=== PATIENT | female | born 1945 | race Hispanic/Latino ===

== ENCOUNTER 2022-05-07 11:00 | Emergency (ER) | payer OTHER ==
--- OUTSIDE RECORDS SUMMARY | 2022-05-07 11:05 | XMS REPORT | Continuity of Care Document ---
:1945 Author Organization [facility] t Address [address] [place] [address] Care Team Providers Name Role Phone Hugo Yanez Savage Primary Care Physician MELCHOR NEGRETE Attending Clinician Unavailable CARLITOS METCALF Attending Clinician Unavailable JOSE G LOPEZ Attending Clinician Unavailable Jose G Lopez MD Attending Clinician JANESSA NAQVI Attending Clinician Unavailable USAMA BERGMAN Attending Clinician Unavailable Usama Bergman MD Attending Clinician Erika Cox MD Attending Clinician HEIDY SEO Attending Clinician Unavailable RAUL GIRALDO Attending Clinician Unavailable KAYLYN SOLO Attending Clinician Unavailable JANESSA NAQVI Admitting Clinician Unavailable ERIKA COX Admitting Clinician Unavailable Erika Cox MD Admitting Clinician KAYLYN SOLO Admitting Clinician Unavailable Payers Payer Name Policy Type Policy Number Effective Date Expiration Date Chelo nam [facility] [id number] 2020 00:00:00 [facility] MEDICARE [id number] 2017 2024 COMPLETE 00:00:00 00:00:00 Problems Condition Condition Condition Status Onset Resolution Last Treating Co mments Source Name Details Category Date Date Treatment Clinician Date Angina at Angina at [facility] HTN HTN Disease Active [facility] (hypertens [facility]-21 Nikki kes ion) ion) [facility] Diabetes Diabetes Disease [facility] Hyperlipid Hyperlipid Disease Active [facility] No known No known Disease [place] active active Health problems problems Encounter Encounter Diagnosis Active 2019-10-30 Memoria for for 02:04:54 l screening screening Herm david mammogram mammogram for breast for breast cancer cancer Active Diagnosis 10/30/2019 [facility] 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 hyperlipid 03:00:22 l emia emeric [place] Active Diagnosis 04/02/2021 [facility] 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 Enzo involving involving [place] coronary coronary artery of artery of [place] heart, heart, angina angina presence presence unspecifie unspecifie d d Active Diagnosis 04/02/2021 [facility] Essential Essential Diagnosis Active 2021-04-02 Memoria hypertensi hypertensi 03:00:22 l on on Active [place] Diagnosis 04/02/2021 [facility] Malignant Malignant Problem Active 2019-12-14 Memoria neoplasm neoplasm 02:00:37 l of of Enzo lower-inne lower-inne r quadrant r quadrant of right of right female female breast, breast, unspecifie unspecifie d estrogen d estrogen receptor receptor status status Active Problem 12/14/2019 [facility] 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 03:00:22 l mellitus mellitus Ricky n with with hyperglyce hyperglyce delvin, delvin, without without long-term long-term current current use of use of insulin insulin Active Diagnosis 04/02/2021 [facility] 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 [place] 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 Enzo Active Problem 04/02/2021 [facility] BMI BMI Problem Active 2021-04-02 Memor ia 33.0-33.9, 33.0-33.9, 03:00:22 l adult adult Enzo Active Problem 04/02/2021 [facility] Falling Falling Problem Active 2021-04-02 Me moria Active 03:00:22 l Problem [place] 04/02/2021 [facility] History of History Problem Active 2021-04-02 Memoria breast of breast 03:00:22 l cancer cancer [place] Active Problem 04/02/2021 [facility] High serum High Problem Active 2021-04-02 M emoria protein serum 03:00:22 l level protein Enzo level Active Problem 04/02/2021 [facility] Keeps Keeps Problem Active 2021-04-02 Memor ia losing losing 03:00:22 l balance balance Enzo Active Problem 04/02/2021 [facility] Other Other Problem Active 2021-04-02 Memor ia chronic chronic 03:00:22 l pain pain Enzo Active Problem 04/02/2021 [facility] Other Other Problem Active 2021-04-02 Memor ia obesity obesity 03:00:22 l due to due to [place] excess excess calories calories Active Problem 04/02/2021 [facility] H/O total H/O total Problem Active 2021-04-02 [facility] mastectomy mastectomy 03:00:22 l of right of right Ricky n breast breast Active Problem 04/02/2021 [facility] History of History Problem Active 2021-04-02 Memoria total of total 03:00:22 l mastectomy mastectomy He rmann of left of left breast breast Active Problem 04/02/2021 [facility] 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 Active Diagnosis 11/21/2020 [facility] Body mass Body mass Problem Active 2021-04-02 Memoria index index 03:00:22 l [BMI] [BMI] Enzo 32.0-32.9, 32.0-32.9, adult adult Active Problem 04/02/2021 [facility] Peripheral Problem Active 2021-04-02 M emoria vascular Peripheral 03:00:22 l disease vascular Enzo disease Active Problem 04/02/2021 [facility] Pain in Pain in Diagnosis Active 2020-12-28 Memoria left leg left leg 02:02:51 l Active [place] Diagnosis 12/28/2020 [facility] Pain in Pain in Diagnosis Active 2020-12-28 Mem[facility] right leg right leg 02:02:51 l Active [place] Diagnosis 12/28/2020 [facility] Diabetic Diabetic Problem Active 2021-04-02 Memoria polyneurop polyneurop 03:00:22 l athy athy [place] associated associated with type with type 2 diabetes 2 diabetes mellitus mellitus Active Problem 04/02/2021 [facility] Screening Screening Diagnosis Active 2020-12-28 Memoria for colon for colon 02:02:51 l cancer cancer [place] Active Diagnosis 12/28/2020 [facility] Screening Screening Diagnosis Active 2020-12-28 Memoria for breast for breast 02:02:51 l cancer cancer [place] Active Diagnosis 12/28/2020 [facility] Asymptomat Asymptoma Diagnosis Active 2020-12-28 Memoria ic tic 02:02:51 l postmenopa postmenopa He rmann usal usal estrogen estrogen deficiency deficiency Active Diagnosis 12/28/2020 [facility] Encntr for Encntr Diagnosis Active 2020-12-28 Memoria general for 02:02:51 l adult general [place] medical adult exam w/o medical abnormal exam w/o findings abnormal findings Active Diagnosis 12/28/2020 [facility] Pain in Pain in Diagnosis Active 2020-11-17 Memoria right knee right knee 02:26:26 l Active Enzo Diagnosis 11/17/2020 [facility] Screening Screening Diagnosis Active 2020-03-29 Memoria for for 03:02:59 l osteoporos osteoporos He eunice is is Active Diagnosis 03/29/2020 [facility] Polyp of Polyp of Diagnosis Active 2020-07-06 Memoria sigmoid sigmoid 03:04:33 l colon, colon, Enzo unspecifie unspecifie d type d type Active Diagnosis 07/06/2020 [facility] Left leg Left leg Diagnosis Active 2021-04-02 Memoria weakness weakness 03:00:22 l Active [place]zo Diagnosis 04/02/2021 [facility] Allergies, Adverse Reactions, Alerts Allergy Allergy Status Severity Reaction(s) Onset Inactive Treating Comm ents Source Name Type Date Date Clinician Amoxicil Amoxicil Active Info Not 2020-05 [place] [facility] grant grant Available 1-12 l 00:00: Valsarta Valsarta Active Info Not 2020-05 [place] n n Available 112 l 00:00: Premarin Premarin Active Info Not 2020-05 [place] Available 1-12 l 00:00: Nystatin Nystatin Active Info Not 2020-05 [place] Available 1-12 l 00:00: NIFEdipi NIFEdipi Active Info Not 2020-05 [place] ne ne Available 1-12 l 00:00: Levaquin Levaquin Active Info Not 2020-05 [place] Available 1-12 l 00:00: Betadine Betadine Active Info Not 2020-05 [place] Available 1-12 l 00:00: Benicar Benicar Active Info Not 2020-05 Memori a Available 1-12 l 00:00: Levoflox Propensi Active [facility] acin ty to 11-17 Health adverse 00:00: reaction 00 s Lisinopr Propensi Active [facility] il ty to 11-17 Health adverse 00:00: reaction 00 s Adhesive Propensi Active [facility] adverse 00:[facility]: Medical reaction 00 Center s Conjugat Propensi Active Hives [facility]28 [facility] Estrogen adverse 00:00: Medical s reaction 00 Center s Tobramyc Propensi Active Hives 2015-[address] [facility] in ty to 3-28 [facility] adverse 00:00: Medical reaction 00 Center s Valsarta Propensi Active Hives 2015-[address] [facility] [facility] n ty to 3-28 [facility] adverse 00:00: Medical reaction 00 Center s Amoxicil Propensi Active Hives 2015-[address] [facility] grant ty to 3-28 [facility] adverse 00:00: Medical reaction 00 Center s Mupiroci Propensi Active Hives 2015- [facility] to 3-[facility] Calcium adverse 00:00: Medical reaction 00 Center s Povidone Propensi Active Hives 2015- [facility] -Iod[facility] ty to 3-28 [facility] (With adverse 00:00: Medical Soap) reaction 00 Center s Levoflox Propensi Active Hives 2015- [facility] to 3-28 [facility] adverse 00:00: Medical reaction 00 Center s Etodolac Propensi Active Hives 2015- [facility] adverse 00:00: Medical reaction 00 Center s Losartan Propensi Active Hives 2015- [facility] 3-[facility] adverse 00:00: Medical reaction 00 Center s Nystatin Propensi Active Hives 2015-[address] [facility] ty to 3-28 [facility] adverse 00:00: Medical reaction 00 Center s Etodolac Allergy Active Hives 2015- [facility] to 328 Health substanc 00:00: e 00 Tobramyc Allergy Active Hives 2014-05 Eye [facility] in to 2-04 redness Health substanc 00:00: and pain e 00 Adhesive Drug Active 2014-05 Skin [facility] Tape Allergy 2-04 blisters Health 00:00: 00 Erythrom Allergy Active 2014-05 The [facility] ycin to 2-04 ophthalmi Health substanc 00:00: c e 00 ointment causes redness and pain Social History Social Habit Start Date Stop Date Quantity Comments Source History [facility] Health Alcohol Std Drinks History [facility] Health Alcohol Binge History [facility] Health Alcohol Comment Exposure to 2022-03-16 2022-03-26 Not sure [facility] SARS-CoV-2 (event) 00:00:00 09:15:00 History [facility] 2020-11-17 2020-11-17 1 [facility] Alcohol Frequency 00:00:00 00:00:00 Alcohol intake 2017-10-07 2017-10-[address] [facility] [facility] 00:00:00 00:00:00 non-drinker of Medical Ce nter alcohol (finding) Tobacco use and 2015-08-15 2015-08-[address] Nikki palacios exposure 00:00:00 00:00:00 [facility] Sex Assigned At [birth year] M[facility] Yang 00:00:00 [facility]:00 [facility] Smoking Status Start Date Stop Date Source Tobacco smoking consumption unknown [facility] Never smoker [facility] Medications Ordered Filled Start Stop Current Ordering Indication Dosage Frequency Signature Comments Components Source Medication Medication Date Date Medication? Clinician (SIG) Name Name bupivacaine 2021-05- No [id number] 1mL [facility] PF 05-26 Health (Marcaine) 15:30: 15:30 0.5 % 00 :00 injection 1 mL lidocaine 2021-05 No [id number] 1mL [facility] (Xylocaine) 05-26 Health 1 % 15:30: 15:30 injection 1 00 :00 mL triamcinolo 2021-05- No [id number] 40mg UT ne 05-26 Health acetonide 15:30: 15:30 (Kenalog-40 00 :00 ) injection 40 mg triamcinolo 2021-05- No [id number] 40mg 40 mg, [facility] ne 05-26 Intra-marily Health acetonide 15:30: 15:30 cular, (Kenalog-40 00 :00 Once PRN ) injection Procedure, 40 mg Starting on Sat03/26/22 at 0930, For 1 dose lidocaine 2021-05 No [id number] 1mL 1 mL, [facility] (Xylocaine) 05-26 Injection, Health 1 % 15:30: 15:30 Once PRN injection 1 00 :00 Procedure, mL Starting on Sat03/26/22 at 0930, For 1 dose bupivacaine 2021-05 No [id number] 1mL 1 mL, UT PF 05-26 Injection, Health (Marcaine) 15:30: 15:30 Once PRN 0.5 % 00 :00 Procedure, injection 1 Starting mL on Sat03/26/22 at 0930, For 1 dose bupivacaine 2021- No [id number] 1mL [facility] PF 11-27 Health (Marcaine) 18:55: 18:55 0.5 % 06 :00 injection 1 mL lidocaine 2021- No [id number] 1mL [facility] (Xylocaine) 11-27 Health 1 % 18:55: 18:55 injection 1 06 :00 mL triamcinolo 2021- No [id number] 40mg UT ne 11-27 Health acetonide 18:55: 18:55 (Kenalog-40 06 :00 ) injection 40 mg triamcinolo 2021- No [id number] 40mg 40 mg, UT ne 11-27 Intra-marily Health acetonide 18:55: 18:55 cular, (Kenalog-40 06 :00 Once PRN ) injection Procedure, 40 mg Starting on Sat11/27/21 at 1355, For 1 dose lidocaine 2021- No [id number] 1mL 1 mL, UT (Xylocaine) 11-27 Injection, H ealth 1 % 18:55: 18:55 Once PRN injection 1 06 :00 Procedure, mL Starting on Sat11/27/21 at 1355, For 1 dose bupivacaine 2021- No [id number] 1mL 1 mL, UT PF 11-27 Injection, Health (Marcaine) 18:55: 18:55 Once PRN 0.5 % 06 :00 Procedure, injection 1 Starting mL on Sat11/27/21 at 1355, For 1 dose triamcinolo 2021- No [id number] 40mg UT ne 08-17 Health acetonide 14:37: 14:37 (Kenalog-40 16 :00 ) injection 40 mg bupivacaine 2021- No [id number] 1mL UT PF 08-1700 Health (Marcaine) 14:37: 14:37 0.5 % 16 :00 injection 1 mL lidocaine 2021- No [id number] 1mL UT (Xylocaine) 08-17 9100 Health 1 % 14:37: 14:37 injection 1 16 :00 mL lidocaine 2021- No [id number] 1mL 1 mL, UT (Xylocaine) 08-17 9100 Injection, H ealth 1 % 14:37: 14:37 Once PRN injection 1 16 :00 Procedure, mL Starting on Claudia 08/17/21 at 0937, For 1 dose bupivacaine No [id number] 1mL 1 mL, UT PF 08-17 9100 Injection, [facility] (Marcaine) 14:37: 14:37 Once PRN 0.5 % 16 :00 Procedure, injection 1 Starting mL on Claudia 08/17/21 at 0937, For 1 dose triamcinolo 2021- No [id number] 40mg 40 mg, UT ne 08-17 9100 Intra-marily Health acetonide 14:37: 14:37 cular, (Kenalog-40 16 :00 Once PRN ) injection Procedure, 40 mg Starting on Claudia 08/17/21 at 0937, For 1 dose Pravastatin 2020-05 Yes Heidy 1 tablet Me moria Sodium 1-14 [place] l 03:00: Enzo 22 Isosorbide 2020-05 Yes Heidy 1 tablet Mem oria Mononitrate 1-14 [place] l 03:00: Acyclovir 2020-05 Yes Heidy TAKE 1 Memori a 1-14 [place] TABLET BY l 03:00: MOUTH [place] 22 TWICE A DAY Aspirin 2020-05 Yes Heidy 1 tablet Memori a 1-14 [place] l 03:00: [place] 22 Atenolol 2020-05 Yes Heidy 1 tablet Memor ia 1-14 [place] l 03:00: Enzo 22 Triamterene 2020-05 Yes Heidy TAKE 1 [place] -HCTZ 1-14 [place] CAPSULE BY l 03:00: MOUTH [place] 22 EVERY MORNING cloNIDine 2020-05 Yes Heidy TAKE 1 Memori a HCl 1-14 [place] TABLET BY l 03:00: MOUTH 3 [place] 22 TIMES A DAY metFORMIN 2020-05 Yes Heidy TAKE 1 Memori a HCl 1-14 [place] TABLET BY l 03:00: MOUTH Enzo 22 TWICE A DAY WITH A MEAL lidocaine 2020-05- No [id number] 1mL UT (Xylocaine) 0-04 02-2000 Health 1 % 18:09: 18:09 injection 1 30 :00 mL bupivacaine 2020-05- No [id number] 1mL UT PF 0-02-20 Health (Marcaine) 18:09: 18:09 0.5 % 30 :00 injection 1 mL triamcinolo 2020-05- No [id number] 40mg UT ne 0-02-20 Health acetonide 18:09: 18:09 (Kenalog-40 30 :00 ) injection 40 mg triamcinolo 2020-05- No [id number] 40mg 40 mg, UT ne 0-02-20 Intra-marily Health acetonide 18:09: 18:09 cular, (Kenalog-40 30 :00 Once PRN ) injection Procedure, 40 mg Starting on Sat02/20/21 at 1309, For 1 dose bupivacaine 2020-05- No [id number] 1mL 1 mL, UT PF 0-02-2000 Injection, Health (Marcaine) 18:09: 18:09 Once PRN 0.5 % 30 :00 Procedure, injection 1 Starting mL on Sat02/20/21 at 1309, For 1 dose lidocaine 2020-05- No [id number] 1mL 1 mL, UT (Xylocaine) 0-02-20 Injection, H ealth 1 % 18:09: 18:09 Once PRN injection 1 30 :00 Procedure, mL Starting on Sat02/20/21 at 1309, For 1 dose Metformin Yes Heidy TAKE 1 Memori a HCl 8-11 [place] TABLET BY l 02:02: MOUTH [place] 51 TWICE A DAY WITH A MEAL Clonidine Yes Heidy 1 tablet [place] HCl 8-11 [place] l 02:02: Enzo 51 Gabapentin Yes Heidy 1 capsule Me moria 8-10 [place] l 00:00: Enzo 00 No known No No known UT medications 7-29 medication He alth 13:27: s 00 No known 2020-0 No No known UT medications 7-29 medication He alth 13:27: s 00 Diclofenac 2020-0 Yes [id number] Q.5D Apply U T Sodium 7-15 topically Health (Voltaren) 00:00: 2 (two) 1 % 00 times a external day. gel Diclofenac 2020-0 Yes [id number] Q.5D Apply U T Sodium 7-15 topically Health (Voltaren) 00:00: 2 (two) 1 % 00 times a external day. gel Diclofenac 2020-0 Yes [id number] Q.5D Apply U T Sodium 7-15 topically Health (Voltaren) 00:00: 2 (two) 1 % 00 times a external day. gel Diclofenac 2020-0 Yes [id number] Q.5D Apply U T Sodium 7-15 topically Health (Voltaren) 00:00: 2 (two) 1 % 00 times a external day. gel Diclofenac 2020-0 Yes [id number] Q.5D Apply U T Sodium 7-15 topically Health (Voltaren) 00:00: 2 (two) 1 % 00 times a external day. gel Diclofenac 2020-0 Yes [id number] Q.5D Apply U T Sodium 7-15 topically Health (Voltaren) 00:00: 2 (two) 1 % 00 times a external day. gel Diclofenac 2020-0 Yes [id number] Q.5D Apply U T Sodium 7-15 topically Health (Voltaren) 00:00: 2 (two) 1 % 00 times a external day. gel Diclofenac 2020-0 Yes [id number] Q.5D Apply U T Sodium 7-15 topically Health (Voltaren) 00:00: 2 (two) 1 % 00 times a external day. gel Diclofenac 2020-0 Yes [id number] Q.5D Apply U T Sodium 7-15 topically Health (Voltaren) 00:00: 2 (two) 1 % 00 times a external day. gel Diclofenac 2020-0 Yes [id number] Q.5D Apply U T Sodium 7-15 topically Health (Voltaren) 00:00: 2 (two) 1 % 00 times a external day. gel meloxicam 2020-2021- No [id number] 15mg QD Take 1 UT (Mobic) 15 7-15 07-16 tablet (15 He alth MG tablet 00:00: 04:59 mg total) 00 :00 by mouth 1 (one) time each day. meloxicam 2021- No [id number] 15mg QD Take 1 UT (Mobic) 15 7-15 07-16 tablet (15 He alth MG tablet 00:00: 04:59 mg total) 00 :00 by mouth 1 (one) time each day. meloxicam 2021- No [id number] 15mg QD Take 1 UT (Mobic) 15 7-15 07-16 tablet (15 He alth MG tablet 00:00: 04:59 mg total) 00 :00 by mouth 1 (one) time each day. meloxicam 2021- No [id number] 15mg QD Take 1 UT (Mobic) 15 7-15 07-16 tablet (15 He alth MG tablet 00:00: 04:59 mg total) 00 :00 by mouth 1 (one) time each day. meloxicam No [id number] 15mg QD Take 1 UT (Mobic) 15 7-15 07-16 tablet (15 He alth MG tablet 00:00: 04:59 mg total) 00 :00 by mouth 1 (one) time each day. meloxicam No [id number] 15mg QD Take 1 UT (Mobic) 15 7-15 07-16 tablet (15 He alth MG tablet 00:00: 04:59 mg total) 00 :00 by mouth 1 (one) time each day. meloxicam No [id number] 15mg QD Take 1 UT (Mobic) 15 7-15 07-16 tablet (15 He alth MG tablet 00:00: 04:59 mg total) 00 :00 by mouth 1 (one) time each day. meloxicam No [id number] 15mg QD Take 1 UT (Mobic) 15 7-15 07-16 tablet (15 He alth MG tablet 00:00: 04:59 mg total) 00 :00 by mouth 1 (one) time each day. meloxicam 2021- No [id number] 15mg QD Take 1 UT (Mobic) 15 12-01 tablet (15 He alth MG tablet 00:00: 04:59 mg total) 00 :00 by mouth 1 (one) time each day. traMADol [id number] 50mg Take 1 U T (Ultram) 50 12-01 tablet (50 H ealth MG tablet 00:00: 04:59 mg total) 00 :00 by mouth every 8 (eight) hours if needed for severe pain for up to 5 days. Triamterene Yes Heidy 1 capsule M emoria -HCTZ 11-21 [place] in the l 02:01: morning Atenolol Yes Heidy 1 tablet Memor ia 11-21 [place] l 02:01: [place] 04 triamcinolo 2020- No [id number] 40mg UT ne 11-17 9109 Health acetonide 19:13: 19:13 (Kenalog-40 27 :00 ) injection 40 mg bupivacaine 2020- No [id number] 1mL UT PF 11-17 9109 Health (Marcaine) 19:13: 19:13 0.5 % 27 :00 injection 1 mL lidocaine 2020- No [id number] 1mL UT (Xylocaine) 11-17 9109 Health 1 % 19:13: 19:13 injection 1 27 :00 mL lidocaine 2020- No [id number] 1mL 1 mL, UT (Xylocaine) 11-17 9109 Injection, H ealth 1 % 19:13: 19:13 Once PRN injection 1 27 :00 Procedure, mL Starting on Claudia 11/17/20 at 1413, For 1 dose bupivacaine 2020- No [id number] 1mL 1 mL, UT PF 11-17 9109 Injection, Health (Marcaine) 19:13: 19:13 Once PRN 0.5 % 27 :00 Procedure, injection 1 Starting mL on Claudia 11/17/20 at 1413, For 1 dose triamcinolo 2020- No [id number] 40mg 40 mg, UT ne 11-1709 Intra-marily Health acetonide 19:13: 19:13 cular, (Kenalog-40 27 :00 Once PRN ) injection Procedure, 40 mg Starting on Sat11/17/20 at 1413, For 1 dose aspirin 81 2020-0 Yes 81mg QD Chew 81 mg U T MG chewable 11-17 1 (one) Healt h tablet 19:09: time each 40 day. aspirin 81 2021-0 Yes 81mg QD Chew 81 mg U T MG chewable 11-17 1 (one) Healt h tablet 19:09: time each 40 day. aspirin 81 2021-0 Yes 81mg QD Chew 81 mg U T MG chewable 11-17 1 (one) Healt h tablet 19:09: time each 40 day. aspirin 81 2021-0 Yes 81mg QD Chew 81 mg U T MG chewable 11-17 1 (one) Healt h tablet 14:09: time each 40 day. aspirin 81 2021-0 Yes 81mg QD Chew 81 mg U T MG chewable 11-17 1 (one) Healt h tablet 14:09: time each 40 day. aspirin 81 2021-0 Yes 81mg QD Chew 81 mg U T MG chewable 11-17 1 (one) Healt h tablet 14:09: time each 40 day. aspirin 81 2021-0 Yes 81mg QD Chew 81 mg U T MG chewable - 1 (one) Healt h tablet 14:09: time each 40 day. aspirin 81 2021-0 Yes 81mg QD Chew 81 mg U T MG chewable - 1 (one) Healt h tablet 14:09: time each 40 day. aspirin 81 2021-0 Yes 81mg QD Chew 81 mg U T MG chewable - 1 (one) Healt h tablet 14:09: time each 40 day. aspirin 81 2021-0 Yes 81mg QD Chew 81 mg U T MG chewable - 1 (one) Healt h tablet 14:09: time each 40 day. aspirin 81 2021-0 Yes 81mg QD Chew 81 mg U T MG chewable - 1 (one) Healt h tablet 14:09: time each 40 day. Diclofenac 2021-0 Yes [id number] Q.5D Apply [place] Sodium 7-01 9109 topically Health (Voltaren) 00:00: 2 (two) 1 % 00 times a external day. gel meloxicam 2021- No [id number] 7.5mg QD Take 1 UT (Mobic) 7.5 11-17 9109 tablet Healt h MG tablet 00:00: 04:59 (7.5 mg 00 :00 total) by mouth 1 (one) time each day. meloxicam 2021- No [id number] 7.5mg QD Take 1 UT (Mobic) 7.5 11-17 9109 tablet Healt h MG tablet 00:00: 04:59 (7.5 mg 00 :00 total) by mouth 1 (one) time each day. meloxicam 2021- No [id number] 7.5mg QD Take 1 UT (Mobic) 7.5 11-17 9109 tablet Healt h MG tablet 00:00: 04:59 (7.5 mg 00 :00 total) by mouth 1 (one) time each day. meloxicam 2021- No [id number] 7.5mg QD Take 1 UT (Mobic) 7.5 11-17 9109 tablet Healt h MG tablet 00:00: 04:59 (7.5 mg 00 :00 total) by mouth 1 (one) time each day. meloxicam 2021- No [id number] 7.5mg QD Take 1 UT (Mobic) 7.5 11-17 9109 tablet Healt h MG tablet 00:00: 04:59 (7.5 mg 00 :00 total) by mouth 1 (one) time each day. meloxicam 2021- No [id number] 7.5mg QD Take 1 UT (Mobic) 7.5 11-17 9109 tablet Healt h MG tablet 00:00: 04:59 (7.5 mg 00 :00 total) by mouth 1 (one) time each day. meloxicam 2021- No [id number] 7.5mg QD Take 1 UT (Mobic) 7.5 7-05 26- 9109 tablet Healt h MG tablet 00:00: 04:59 (7.5 mg 00 :00 total) by mouth 1 (one) time each day. meloxicam 2021-0 2- No [id number] 7.5mg QD Take 1 UT (Mobic) 7.5 11-17 9109 tablet Healt h MG tablet 00:00: 04:59 (7.5 mg 00 :00 total) by mouth 1 (one) time each day. meloxicam 2021-0 2022- No [id number] 7.5mg QD Take 1 UT (Mobic) 7.5 11-17 9109 tablet Healt h MG tablet 00:00: 04:59 (7.5 mg 00 :00 total) by mouth 1 (one) time each day. Diclofenac 2020-0 2020- No [id number] Q.5D Apply [facility] S[facility] 11-17 [facility] 00:00 2 (two) 1 % 00 :00 times a external day. gel isosorbide 2021-0 Yes 20mg Take 20 mg U T mononitrate 6-02 by mouth 2 He alth 20 MG 00:00: (two) tablet 00 times a day with meals. isosorbide 2021-0 Yes 20mg Take 20 mg U T mononitrate 6-02 by mouth 2 He alth 20 MG 00:00: (two) tablet 00 times a day with meals. isosorbide 2021-0 Yes 20mg Take 20 mg U T mononitrate 6-02 by mouth 2 He alth 20 MG 00:00: (two) tablet 00 times a day with meals. isosorbide 2021-0 Yes 20mg Take 20 mg U T mononitrate 6-02 by mouth 2 He alth 20 MG 00:00: (two) tablet 00 times a day with meals. isosorbide 2021-0 Yes 20mg Take 20 mg U T mononitrate 6-02 by mouth 2 He alth 20 MG 00:00: (two) tablet 00 times a day with meals. isosorbide 2021-0 Yes 20mg Take 20 mg U T mononitrate 6-02 by mouth 2 He alth 20 MG 00:00: (two) tablet 00 times a day with meals. isosorbide 2021-0 Yes 20mg Take 20 mg U T mononitrate 6-02 by mouth 2 He alth 20 MG 00:00: (two) tablet 00 times a day with meals. isosorbide 2021-0 Yes 20mg Take 20 mg U T mononitrate 6-02 by mouth 2 He alth 20 MG 00:00: (two) tablet 00 times a day with meals. isosorbide 2021-0 Yes 20mg Take 20 mg U T mononitrate 6-02 by mouth 2 He alth 20 MG 00:00: (two) tablet 00 times a day with meals. isosorbide 2021-0 Yes 20mg Take 20 mg U T mononitrate 6-02 by mouth 2 He alth 20 MG 00:00: (two) tablet 00 times a day with meals. isosorbide 2021-0 Yes 20mg Take 20 mg U T mononitrate 6-02 by mouth 2 He alth 20 MG 00:00: (two) tablet 00 times a day with meals. metFORMIN 2020-0 Yes TAKE 1 UT (Glucophage 4-21 TABLET BY [facility] ) 500 MG 00:00: MOUTH tablet 00 TWICE A DAY WITH A MEAL pravastatin 1-0 Yes 10mg QD Take 10 mg UT (Pravachol) 4-21 by mouth 1 He alth 10 MG 00:00: (one) time tablet 00 each day. metFORMIN 2020-0 Yes TAKE 1 UT (Glucophage 4-21 TABLET BY [facility] ) 500 MG 00:00: MOUTH tablet 00 TWICE A DAY WITH A MEAL pravastatin 2020-0 Yes 10mg QD Take 10 mg UT (Pravachol) 4-21 by mouth 1 He alth 10 MG 00:00: (one) time tablet 00 each day. metFORMIN 2020-0 Yes TAKE 1 UT (Glucophage 4-21 TABLET BY [facility] ) 500 MG 00:00: MOUTH tablet 00 TWICE A DAY WITH A MEAL pravastatin 2020-0 Yes 10mg QD Take 10 mg UT (Pravachol) 4-21 by mouth 1 He alth 10 MG 00:00: (one) time tablet 00 each day. metFORMIN 2020-0 Yes TAKE 1 UT (Glucophage 4-21 TABLET BY [facility] ) 500 MG 00:00: MOUTH tablet 00 TWICE A DAY WITH A MEAL pravastatin 2021-0 Yes 10mg QD Take 10 mg UT (Pravachol) 4-21 by mouth 1 He alth 10 MG 00:00: (one) time tablet 00 each day. metFORMIN 2020-0 Yes TAKE 1 UT (Glucophage 4-21 TABLET BY [facility] ) 500 MG 00:00: MOUTH tablet 00 TWICE A DAY WITH A MEAL pravastatin 2021-0 Yes 10mg QD Take 10 mg UT (Pravachol) 4-21 by mouth 1 He alth 10 MG 00:00: (one) time tablet 00 each day. metFORMIN 2020-0 Yes TAKE 1 UT (Glucophage 4-21 TABLET BY [facility] ) 500 MG 00:00: MOUTH tablet 00 TWICE A DAY WITH A MEAL pravastatin 2020-0 Yes 10mg QD Take 10 mg UT (Pravachol) 4-21 by mouth 1 He alth 10 MG 00:00: (one) time tablet 00 each day. metFORMIN 2020-0 Yes TAKE 1 UT (Glucophage 4-21 TABLET BY [facility] ) 500 MG 00:00: MOUTH tablet 00 TWICE A DAY WITH A MEAL pravastatin 2020-0 Yes 10mg QD Take 10 mg UT (Pravachol) 4-21 by mouth 1 He alth 10 MG 00:00: (one) time tablet 00 each day. metFORMIN 2020-0 Yes TAKE 1 UT (Glucophage 4-21 TABLET BY [facility] ) 500 MG 00:00: MOUTH tablet 00 TWICE A DAY WITH A MEAL pravastatin 2020-0 Yes 10mg QD Take 10 mg UT (Pravachol) 4-21 by mouth 1 He alth 10 MG 00:00: (one) time tablet 00 each day. metFORMIN 2020-0 Yes TAKE 1 UT (Glucophage 4-21 TABLET BY [facility] ) 500 MG 00:00: MOUTH tablet 00 TWICE A DAY WITH A MEAL pravastatin 2020-0 Yes 10mg QD Take 10 mg UT (Pravachol) 4-21 by mouth 1 He alth 10 MG 00:00: (one) time tablet 00 each day. metFORMIN 2020-0 Yes TAKE 1 UT (Glucophage 4-21 TABLET BY [facility] ) 500 MG 00:00: MOUTH tablet 00 TWICE A DAY WITH A MEAL pravastatin 2021-0 Yes 10mg QD Take 10 mg UT (Pravachol) 4-21 by mouth 1 He alth 10 MG 00:00: (one) time tablet 00 each day. metFORMIN 2020-0 Yes TAKE 1 UT (Glucophage 4-21 TABLET BY [facility] ) 500 MG 00:00: MOUTH tablet 00 TWICE A DAY WITH A MEAL pravastatin 2020-0 Yes 10mg QD Take 10 mg UT (Pravachol) 4-21 by mouth 1 He alth 10 MG 00:00: (one) time tablet 00 each day. cloNIDine 2021-0 Yes .1mg Q.[id number] Take 0.1 UT (Catapres) 4-02 [id number] mg by He alth 0.1 MG 00:00: 3D mouth 3 tablet 00 (three) times a day. cloNIDine 2021-0 Yes .1mg Q.[id number] Take 0.1 UT (Catapres) 4-02 [id number] mg by He alth 0.1 MG 00:00: 3D mouth 3 tablet 00 (three) times a day. cloNIDine 2021-0 Yes .1mg Q.[id number] Take 0.1 UT (Catapres) 4-02 [id number] mg by He alth 0.1 MG 00:00: 3D mouth 3 tablet 00 (three) times a day. cloNIDine 2021-0 Yes .1mg Q.[id number] Take 0.1 UT (Catapres) 4-02 [id number] mg by He alth 0.1 MG 00:00: 3D mouth 3 tablet 00 (three) times a day. cloNIDine 2021-0 Yes .1mg Q.[id number] Take 0.1 UT (Catapres) 4-02 [id number] mg by He alth 0.1 MG 00:00: 3D mouth 3 tablet 00 (three) times a day. cloNIDine 2021-0 Yes .1mg Q.[id number] Take 0.1 UT (Catapres) 4-02 [id number] mg by He alth 0.1 MG 00:00: 3D mouth 3 tablet 00 (three) times a day. cloNIDine 2021-0 Yes .1mg Q.[id number] Take 0.1 UT (Catapres) 4-02 [id number] mg by He alth 0.1 MG 00:00: 3D mouth 3 tablet 00 (three) times a day. cloNIDine 2021-0 Yes .1mg Q.[id number] Take 0.1 UT (Catapres) 4-02 [id number] mg by He alth 0.1 MG 00:00: 3D mouth 3 tablet 00 (three) times a day. cloNIDine 2021-0 Yes .1mg Q.[id number] Take 0.1 UT (Catapres) 4-02 [id number] mg by He alth 0.1 MG 00:00: 3D mouth 3 tablet 00 (three) times a day. cloNIDine 2021-0 Yes .1mg Q.[id number] Take 0.1 UT (Catapres) 4-02 [id number] mg by He alth 0.1 MG 00:00: 3D mouth 3 tablet 00 (three) times a day. cloNIDine 2021-0 Yes .1mg Q.[id number] Take 0.1 UT (Catapres) 4-02 [id number] mg by He alth 0.1 MG 00:00: 3D mouth 3 tablet 00 (three) times a day. acyclovir 2021-0 Yes 400mg Q.5D Take 400 UT (Zovirax) 3-25 mg by Health 400 MG 00:00: mouth 2 tablet 00 (two) times a day. acyclovir 2021-0 Yes 400mg Q.5D Take 400 UT (Zovirax) 3-25 mg by Health 400 MG 00:00: mouth 2 tablet 00 (two) times a day. acyclovir 2021-0 Yes 400mg Q.5D Take 400 UT (Zovirax) 3-25 mg by Health 400 MG 00:00: mouth 2 tablet 00 (two) times a day. acyclovir 2021-0 Yes 400mg Q.5D Take 400 UT (Zovirax) 3-25 mg by Health 400 MG 00:00: mouth 2 tablet 00 (two) times a day. acyclovir 2021-0 Yes 400mg Q.5D Take 400 UT (Zovirax) 3-25 mg by Health 400 MG 00:00: mouth 2 tablet 00 (two) times a day. acyclovir 2021-0 Yes 400mg Q.5D Take 400 UT (Zovirax) 3-25 mg by Health 400 MG 00:00: mouth 2 tablet 00 (two) times a day. acyclovir 2021-0 Yes 400mg Q.5D Take 400 UT (Zovirax) 3-25 mg by Health 400 MG 00:00: mouth 2 tablet 00 (two) times a day. acyclovir 2021-0 Yes 400mg Q.5D Take 400 UT (Zovirax) 3-25 mg by Health 400 MG 00:00: mouth 2 tablet 00 (two) times a day. acyclovir 2021-0 Yes 400mg Q.5D Take 400 UT (Zovirax) 3-25 mg by Health 400 MG 00:00: mouth 2 tablet 00 (two) times a day. acyclovir 2021-0 Yes 400mg Q.5D Take 400 UT (Zovirax) 3-25 mg by Health 400 MG 00:00: mouth 2 tablet 00 (two) times a day. acyclovir 2021-0 Yes 400mg Q.5D Take 400 UT (Zovirax) 3-25 mg by Health 400 MG 00:00: mouth 2 tablet 00 (two) times a day. atenolol 2021-0 Yes 50mg Q.5D Take 50 mg UT (Tenormin) 3-19 by mouth 2 Hea lth 50 MG 00:00: (two) tablet 00 times a day. atenolol 2021-0 Yes 50mg Q.5D Take 50 mg UT (Tenormin) 3-19 by mouth 2 Hea lth 50 MG 00:00: (two) tablet 00 times a day. atenolol 2021-0 Yes 50mg Q.5D Take 50 mg UT (Tenormin) 3-19 by mouth 2 Hea lth 50 MG 00:00: (two) tablet 00 times a day. atenolol 2021-0 Yes 50mg Q.5D Take 50 mg UT (Tenormin) 3-19 by mouth 2 Hea lth 50 MG 00:00: (two) tablet 00 times a day. atenolol 2021-0 Yes 50mg Q.5D Take 50 mg UT (Tenormin) 3-19 by mouth 2 Hea lth 50 MG 00:00: (two) tablet 00 times a day. atenolol 2021-0 Yes 50mg Q.5D Take 50 mg UT (Tenormin) 3-19 by mouth 2 Hea lth 50 MG 00:00: (two) tablet 00 times a day. atenolol 2021-0 Yes 50mg Q.5D Take 50 mg UT (Tenormin) 3-19 by mouth 2 Hea lth 50 MG 00:00: (two) tablet 00 times a day. atenolol 2021-0 Yes 50mg Q.5D Take 50 mg UT (Tenormin) 3-19 by mouth 2 Hea lth 50 MG 00:00: (two) tablet 00 times a day. atenolol 2021-0 Yes 50mg Q.5D Take 50 mg UT (Tenormin) 3-19 by mouth 2 Hea lth 50 MG 00:00: (two) tablet 00 times a day. atenolol 2021-0 Yes 50mg Q.5D Take 50 mg UT (Tenormin) 3-19 by mouth 2 Hea lth 50 MG 00:00: (two) tablet 00 times a day. atenolol 2021-0 Yes 50mg Q.5D Take 50 mg UT (Tenormin) 3-19 by mouth 2 Hea lth 50 MG 00:00: (two) tablet 00 times a day. triamterene 2021-0 Yes 1{capsu Take 1 U T -hydroCHLOR 2-20 le} capsule by He alth Othiazide 00:00: mouth 1 (Dyazide) 00 (one) time 37.5-25 MG each day capsule in the morning. triamterene 2021-0 Yes 1{capsu Take 1 U T -hydroCHLOR 2-20 le} capsule by He alth Othiazide 00:00: mouth 1 (Dyazide) 00 (one) time 37.5-25 MG each day capsule in the morning. triamterene 2021-0 Yes 1{capsu Take 1 U T -hydroCHLOR 2-20 le} capsule by He alth Othiazide 00:00: mouth 1 (Dyazide) 00 (one) time 37.5-25 MG each day capsule in the morning. triamterene 2021-0 Yes 1{capsu Take 1 U T -hydroCHLOR 2-20 le} capsule by He alth Othiazide 00:00: mouth 1 (Dyazide) 00 (one) time 37.5-25 MG each day capsule in the morning. triamterene 2021-0 Yes 1{capsu Take 1 U T -hydroCHLOR 2-20 le} capsule by He alth Othiazide 00:00: mouth 1 (Dyazide) 00 (one) time 37.5-25 MG each day capsule in the morning. triamterene Yes 1{capsu Take 1 U T -hydroCHLOR 2-20 le} capsule by He alth Othiazide 00:00: mouth 1 (Dyazide) 00 (one) time 37.5-25 MG each day capsule in the morning. triamterene Yes 1{capsu Take 1 U T -hydroCHLOR 2-20 le} capsule by He alth Othiazide 00:00: mouth 1 (Dyazide) 00 (one) time 37.5-25 MG each day capsule in the morning. triamterene Yes 1{capsu Take 1 U T -hydroCHLOR 2-20 le} capsule by He alth Othiazide 00:00: mouth 1 (Dyazide) 00 (one) time 37.5-25 MG each day capsule in the morning. triamterene Yes 1{capsu Take 1 U T -hydroCHLOR 2-20 le} capsule by He alth Othiazide 00:00: mouth 1 (Dyazide) 00 (one) time 37.5-25 MG each day capsule in the morning. triamterene Yes 1{capsu Take 1 U T -hydroCHLOR 2-20 le} capsule by He alth Othiazide 00:00: mouth 1 (Dyazide) 00 (one) time 37.5-25 MG each day capsule in the morning. triamterene Yes 1{capsu Take 1 U T -hydroCHLOR 2-20 le} capsule by He alth Othiazide 00:00: mouth 1 (Dyazide) 00 (one) time 37.5-25 MG each day capsule in the morning. Triamterene 0 Yes Rufino 1 capsule M [facility] -HCTZ 2-17 [place] in the l 03:04: morning [place] 33 Clonidine 2020-0 Yes Rufino 1 tablet [place] edgard HCl 2-17 [facility] l 03:04: Enzo 33 Pravastatin 2020-0 Yes Rufino 1 tablet Me moria Sodium 2-17 [facility] l 03:04: [place] 33 Acyclovir 2020-0 Yes Rufino 1 tablet [place] edgard 2-17 [facility] l 03:04: [place] 33 Metformin 2020-0 Yes Rufino 1 tablet [place] edgard HCl 2-17 [place] with a l 03:04: meal [place] 33 nitroglycer 2020-0 Yes TAKE UT in 06-13 [facility] (Nitrostat) 00:00: NEEDED 0.4 MG SL 00 FOR CHEST tablet PAIN nitroglycer 2020-0 Yes TAKE UT in 06-13 [facility] (Nitrostat) 00:00: NEEDED 0.4 MG SL 00 FOR CHEST tablet PAIN nitroglycer 2020-0 Yes TAKE UT in 06-13 [facility] (Nitrostat) 00:00: NEEDED 0.4 MG SL 00 FOR CHEST tablet PAIN nitroglycer 2020-0 Yes TAKE UT in 06-13 [facility] (Nitrostat) 00:00: NEEDED 0.4 MG SL 00 FOR CHEST tablet PAIN nitroglycer 2020-0 Yes TAKE UT in 06-13 [facility] (Nitrostat) 00:00: NEEDED 0.4 MG SL 00 FOR CHEST tablet PAIN nitroglycer 2020-0 Yes TAKE UT in 06-13 [facility] (Nitrostat) 00:00: NEEDED 0.4 MG SL 00 FOR CHEST tablet PAIN nitroglycer 2020-0 Yes TAKE UT in 06-13 [facility] (Nitrostat) 00:00: NEEDED 0.4 MG SL 00 FOR CHEST tablet PAIN nitroglycer 2020-0 Yes TAKE UT in 06-13 [facility] (Nitrostat) 00:00: NEEDED 0.4 MG SL 00 FOR CHEST tablet PAIN nitroglycer 2020-0 Yes TAKE UT in 06-13 [facility] (Nitrostat) 00:00: NEEDED 0.4 MG SL 00 FOR CHEST tablet PAIN nitroglycer 2020-0 Yes TAKE UT in 06-13 [facility] (Nitrostat) 00:00: NEEDED 0.4 MG SL 00 FOR CHEST tablet PAIN nitroglycer 2020-0 Yes TAKE UT in 06-13 [facility] (Nitrostat) 00:00: NEEDED 0.4 MG SL 00 FOR CHEST tablet PAIN Atenolol 2019-1 Yes Rufino 1 tablet [facility] 1-10 [facility] l 03:02: 59 Acyclovir 2019-0 Yes Rufino 1 tablet [place] edgard 8-10 [place] l 02:02: 45 Metformin 2019-0 Yes Rufino 1 tablet [place] edgard HCl 8-10 [place] with a l 02:02: meal 45 triamterene 2017-0 Yes 1{capsu QD Take [address] -hydrochlor 5-15 le} capsule by Nikki kes othiazide 12:09: mouth Medical (DYAZIDE) 09 every Center 37.5-25 mg morning. per capsule isosorbide 2018-0 Yes 20mg Q.[id number] Take [address] [facility] dinitrate 5-15 [id number] by mouth 3 [facility] (ISORDIL) 12:09: 3D (three) Medic al 20 MG 09 times Center tablet daily. nitroglycer 2018-[address] 0[address] in 5-15 [facility] (NITROSTAT) 12:09: the tongue Medical 0.3 MG SL 09 every 5 Center tablet (five) minutes as needed for Chest pain Put 1 pill under tongue every 5min as needed for chest pain.No more than 3 doses in 15min.Call 911 if pain is unrelieved 5min after 1st dose . cloNIDine 2018-0 Yes 1{patch Q7D Place [address] [facility] [address] (CATAPRES-T 5-15 } patch onto [facility] TS) 0.1 12:09: the skin Medica l mg/24 hr 09 once a Center patch week. triamterene 2018-0 Yes 1{capsu QD Take [address] -hydrochlor 5-15 le} capsule by Nikki kes othiazide 12:09: mouth Medical (DYAZIDE) 09 every Center 37.5-25 mg morning. per capsule isosorbide 2018-0 Yes 20mg Q.[id number] Take [address] [facility] dinitrate 5-15 [id number] by mouth 3 [facility] (ISORDIL) 12:09: 3D (three) Medic al 20 MG 09 times Center tablet daily. nitroglycer 2018-[address] in 5-15 [facility] (NITROSTAT) 12:09: the tongue Medical 0.3 MG SL 09 every 5 Center tablet (five) minutes as needed for Chest pain Put 1 pill under tongue every 5min as needed for chest pain.No more than 3 doses in 15min.Call 911 if pain is unrelieved 5min after 1st dose . cloNIDine 2018-0 Yes 1{patch Q7D Place [address] (CATAPRES-T 5-15 } patch onto [facility] TS) 0.1 12:09: the skin Medica l mg/24 hr 09 once a Center patch week. triamterene 2018-0 Yes 1{capsu QD Take [address] -hydrochlor 5-15 le} capsule by [facility] othiazide 12:09: mouth Medical (DYAZIDE) 09 every Center 37.5-25 mg morning. per capsule isosorbide 2018-0 Yes 20mg Q.[id number] Take [address] [facility] dinitrate 5-15 [id number] by mouth 3 [facility] (ISORDIL) 12:09: 3D (three) Medic al 20 MG 09 times Center tablet daily. nitroglycer 2018-[address] in 5-15 [facility] (NITROSTAT) 12:09: the tongue Medical 0.3 MG SL 09 every 5 Center tablet (five) minutes as needed for Chest pain Put 1 pill under tongue every 5min as needed for chest pain.No more than 3 doses in 15min.Call 911 if pain is unrelieved 5min after 1st dose . cloNIDine 2018-0 Yes 1{patch Q7D Place [address] (CATAPRES-T 5-15 } patch onto [facility] TS) 0.1 12:09: the skin Medica l mg/24 hr 09 once a Center patch week. triamterene 2017-0 Yes 1{capsu QD Take [address] -hydrochlor 5-15 le} capsule by [facility] othiazide 12:09: mouth Medical (DYAZIDE) 09 every Center 37.5-25 mg morning. per capsule isosorbide 2018-0 Yes 20mg Q.[id number] Take [address] [facility] [address] dinitrate 5-15 [id number] by mouth 3 [facility] (ISORDIL) 12:09: 3D (three) Medic al 20 MG 09 times Center tablet daily. nitroglycer 2018-[address] 0[address] in 5-15 mg [facility] (NITROSTAT) 12:09: the tongue Medical 0.3 MG SL 09 every 5 Center tablet (five) minutes as needed for Chest pain Put 1 pill under tongue every 5min as needed for chest pain.No more than 3 doses in 15min.Call 911 if pain is unrelieved 5min after 1st dose . cloNIDine 2018-0 Yes 1{patch Q7D Place [address] (CATAPRES-T 5-15 } patch onto [facility] TS) 0.1 12:09: the skin Medica l mg/24 hr 09 once a Center patch week. Immunizations Ordered Immunization Filled Immunization Date Status Commen ts Source Name Name Pneumococcal 2020-03-23 Completed [facility] (Prevnar 13) 00:00:00 [place] Vital Signs Vital Name Observation Time Observation Value Comments Source Weight 2021-03-31 17:30:00 [facility] Height 2021-03-31 17:30:00 [facility] Heart Rate 2021-03-31 17:30:00 [facility] Diastolic (mm Hg) 2021-03-31 17:30:00 Mem [facility] [place] Systolic (mm Hg) 2021-03-31 17:30:00 [place] [facility] [place] Weight 2020-12-27 14:00:00 [facility] [place] Height 2020-12-27 14:00:00 [facility] Heart Rate 2020-12-27 14:00:00 [facility] [place] Diastolic (mm Hg) 2020-12-27 14:00:00 Mem orial [place] Systolic (mm Hg) 2020-12-27 14:00:00 [place] [facility] Weight 2020-09-30 16:00:00 [facility] [place] Height 2020-09-30 16:00:00 [facility] [place] Heart Rate 2020-09-30 16:00:00 [facility] [place] Diastolic (mm Hg) 2020-09-30 16:00:00 Mem orial [place] Systolic (mm Hg) 2020-09-30 16:00:00 [place] [facility] [place] Weight 2020-09-26 13:45:00 [facility] Height 2020-09-26 13:45:00 [facility] Heart Rate 2020-09-26 13:45:00 [facility] Diastolic (mm Hg) 2020-09-26 13:45:00 Mem [facility] [place] Systolic (mm Hg) 2020-09-26 13:45:00 [place] [facility] Weight 2020-06-28 14:30:00 [facility] [place] Height 2020-06-28 14:30:00 [facility] Heart Rate 2020-06-28 14:30:00 [facility] Diastolic (mm Hg) 2020-06-28 14:30:00 Mem [facility] [place] Systolic (mm Hg) 2020-06-28 14:30:00 [place] [facility] Weight 2020-03-23 14:30:00 [facility] [place] Height 2020-03-23 14:30:00 [facility] [place] Heart Rate 2020-03-23 14:30:00 [facility] Diastolic (mm Hg) 2020-03-23 14:30:00 Mem [facility] [place] Systolic (mm Hg) 2020-03-23 14:30:00 [place] [facility] Systolic (mm Hg) 2019-12-22 14:30:00 [place] [facility] [place] Weight 2019-12-22 14:30:00 [facility] Height 2019-12-22 14:30:00 [facility] [place] Temperature Oral (F) 2019-12-22 14:30:00 98.0 F [facility] [place] Heart Rate 2019-12-22 14:30:00 [facility] [place] Diastolic (mm Hg) 2019-12-22 14:30:00 Mem orial [place] Weight 2019-12-08 14:15:00 [facility] [place] Height 2019-12-08 14:15:00 [facility] [place] Temperature Oral (F) 2019-12-08 14:15:00 98.0 F [facility] [place] Heart Rate 2019-12-08 14:15:00 [facility] Diastolic (mm Hg) 2019-12-08 14:15:00 Mem orial [place] Systolic (mm Hg) 2019-12-08 14:15:00 [place] [facility] Procedures Procedure Date / Time Performed Performing Clinician Rojas sami NE ARTHROCENTESIS ASP/INJ 2022-03-26 15:30:00 Melchor Negrete [facility] MAJOR JOINT/BURSA W/OUT US NE ARTHROCENTESIS ASPIR&/INJ 2021-11-27 18:55:06 Melchor Negrete [facility] MAJOR JT/BURSA W/O US NE ARTHROCENTESIS ASPIR&/INJ 2021-08-17 14:37:16 Melchor Negrete [facility] MAJOR JT/BURSA W/O US US EXT LOWER VENOUS DOPPLER 2021-04-27 02:42:00 Mercedez Sawant [facility] BILAT US EXT LOWER VENOUS DOPPLER 2021-04-27 02:42:00 Mercedez Sawant [facility] BILAT SURGICAL PATHOLOGY 2021-04-26 16:41:00 TeaCarlitos cunha [facility] SURGICAL PATHOLOGY 2021-04-26 16:41:00 TeaCarlitos cunha [facility] MRI THORACIC SPINE W WO 2021-04-26 04:25:27 TeaCarlitos-Y u [facility] CONTRAST MRI THORACIC SPINE W WO 2021-04-26 04:25:27 TeaCarlitos-Y u [facility] CONTRAST MRI CERVICAL SPINE W WO 2021-04-26 04:25:03 TeaCarlitos-Y u [facility] CONTRAST MRI CERVICAL SPINE W WO 2021-04-26 04:25:03 TeaCarlitos-Y u [facility] CONTRAST CT CERVICAL SPINE WO 2021-04-25 23:40:27 TeaCarlitos U [facility] CONTRAST CT CHEST/ABDOMEN/PELVIS WO 2021-04-25 23:40:27 Landry Chino K [facility] CONTRAST [id number] CT CERVICAL SPINE WO 2021-04-25 23:40:27 TeaCarlitos [facility] CONTRAST CT CHEST/ABDOMEN/PELVIS WO 2021-04-25 23:40:27 Landry Chino K [facility] CONTRAST [id number] MRI THORACIC SPINE WO 2021-04-25 20:10:25 TeaCarlitos [facility] CONTRAST MRI THORACIC SPINE WO 2021-04-25 20:10:25 Tea, Carlitos Mahan [facility] CONTRAST ECG 12-LEAD 2021-04-24 15:15:22 [facility] ECG 12-LEAD 2021-04-24 15:15:[facility] NE ARTHROCENTESIS ASPIR&/INJ 2021-02-20 18:09:30 Melchor Negrete [facility] MAJOR JT/BURSA W/O US NE ARTHROCENTESIS ASPIR&/INJ 2020-11-17 19:13:27 Melchor Negrete [facility] MAJOR JT/BURSA W/O US KNEE 4+ VIEWS UNILATERAL DX 2020-09-27 20:12:00 System, Provider Not In [facility] KNEE 4+ VIEWS UNILATERAL DX 2020-09-27 20:12:00 System, Provider Not In [facility] Plan of Care Planned Activity Planned Date Details Comments Source Future Scheduled 2022-05-05 COVID-19 [facility]ACCINE (#[facility] 12:44:32 [code = COVID-19 VACCINE (#1)] Future Scheduled 2022-05-05 SHINGLES VACCINES [facility] 12:44:32 of 2) [code = SHINGLES VACCINES (1 of 2)] Future Scheduled 2022-05-05 65+ [facility] [facility] 12:44:32 VACCINE (1 - PCV) [code = 65+ PNEUMOCOCCAL VACCINE (1 - PCV)] Future Scheduled 2022-05-05 [facility]FLUENZA VACCINE [facility] 12:44:32 [code = INFLUENZA VACCINE] Future Scheduled [facility]ACC[facility] [code = INFLUENZA VACCINE] Future Scheduled COVID-19 VACCINE (1) [facility] [code = COVID-19 VACCINE (1)] Future Scheduled SHINGLES VACCINES (#1) [facility] [code = SHINGLES VACCINES (#1)] Future Scheduled 65+ [facility]OCOCCAL [facility] VACCINE (1 of 1 - PPSV23) [code = 65+ PNEUMOCOCCAL VACCINE (1 of 1 - PPSV23)] Encounters Start End Encounter Admission Attending Care Care Encounter Source Date/Time Date/Time Type Type Clinicians Facility Department ID 2022-05-07 Outpatient [id number] [facility] 11:03:04 [id number] [id number] 2021-08-01 Outpatient [facility] [id number] [place] 12:17:47 [facility] 2021-07-26 Outpatient TEA [facility] [id number] [place] 01:04:23 [facility] 2020-11-29 Outpatient [facility] [id number] [place] 13:32:52 [facility] 2020-11-14 Outpatient IONA [facility] [id number] [place] 10:14:35 [facility] 2022-03-26 2022-03-26 Office ABELARDO Negrete [facility] [id number] [place] 09:30:00 09:44:59 Visit Melchor ODONNELL [id number] H ealt MEDICAL [id number] [place] 0 [id number] 2022-01-19 2022-02-17 Outpatient CIRILOBAPROSPER, MHHH [facility] [id number] MHHH 14:59:00 23:59:00 JOSE G 2022-01-17 2022-01-17 Outpatient CIRILOBAPROSPER, MHBL MHBL [id number] MHBL 07:33:00 23:59:00 JOSE G 2021-11-27 2021-11-27 Office ABELARDO Negrete [facility] [id number] [place] 14:15:00 14:17:50 Visit Melchor ODONNELL [id number] [facility] ealt MEDICAL [id number] [address] [id number] 2021-08-28 2021-08-28 Telephone ABELARDO Lopez [id number] [place] 00:00:00 00:00:00 Jose G M[facility] [id number] Health [id number] 2021-07-21 2021-08-19 Outpatient JOHN, MHHH MHHH [id number] MHHH 14:07:00 23:59:00 JOSE G 2021-08-17 2021-08-17 Office ABELARDO Negrete [facility] 1.2.840.114 [id number] [place] 09:45:00 09:45:00 Visit Meclhor ODONNELL [id number] [place] MEDICAL [id number] PLA[place] 4 [id number] 2021-08-09 2021-08-09 Outpatient AMSBAUGH, MHSE MHSE [id number] MH 16:40:00 23:59:00 [facility] 2021-07-19 2021-07-19 Outpatient AMSBAUGH, MHSE MHSE [id number] MH 15:21:00 23:59:00 [facility] 2021-06-26 2021-06-26 Telephone Tea ABELARDO 6400 1.2.840.114 [id number] [place] 00:00:00 00:00:00 Carlitos MONTES [id number] Health [place] [id number] 2021-05-02 2021-05-11 Inpatient DONYA, SE MED 7502 13:01:00 14:11:[address] [facility] 2021-04-25 2021-05-02 Inpatient E DANNI MHSE MED [id number] 16:48:00 13:00:00 [facility] 2021-04-24 2021-04-24 EXT [facility] OP Usama Bergman EXT MSRDP 1.2.840. 114 [id number] [place] 00:00:00 00:00:00 Erika Cox LOCATION [id number] Health 9.2.7.2.686 [id number] 2021-04-24 2021-04-24 EXT [facility] OP Usama Bergman EXT MSRDP 1.2.840. 114 [id number] [place] 00:00:00 00:00:00 Erika Cox LOCATION [id number] Health 9.2.7.2.686 [id number] 2021-03-31 2021-03-31 Outpatient Steven Harris [id number] eClinic 11:30:00 11:30:00 Family Family alWork s Practice Practice 2021-02-20 2021-02-20 Office ABELARDO Negrete [facility] 1.2.840.114 [id number] [place] 12:35:37 13:55:05 Visit Melchor ODONNELL [id number] H [facility] MEDICAL [id number] PLAZA 9 [id number] [id number] 2020-12-27 2020-12-27 Outpatient Steven Harris [id number] eClinic 09:00:00 09:00:00 [facility] Practice 2020-12-15 2020-12-15 Office ABELARDO Negrete [facility] [id number] [place] 13:00:30 13:39:05 Visit Melchor ODONNELL [id number] H [facility] MEDICAL [id number] PLAZA 8 [id number] 2020-12-01 2020-12-01 Office ABELARDO Negrete M[facility] [id number] [place] 12:41:38 13:41:37 Visit Melchor ODONNELL [id number] H ealth MEDICAL [id number] PLAZA 3 [id number] 2020-11-17 2020-11-17 Office ABELARDO Negrete M[facility] [id number] [place] 12:57:24 13:27:24 Visit Melchor ODONNELL [id number] H ealth MEDICAL [id number] PLAZA 4 [id number] 2020-09-30 2020-09-30 Outpatient Steven Harris [id number] eClinic 11:00:00 11:00:00 Family Family alWork s Practice Practice 2020-09-27 2020-09-27 Outpatient [facility] MED 113 1 MH 14:54:00 23:59:00 HEIDY cartwright [facility] 2020-09-27 2020-09-27 EXT MHH OP EXT MSRDP 1.2.840.114 [id number] [place] 00:00:00 00:00:00 LOCATION [id number] H ealth [id number] [id number] 2020-09-27 2020-09-27 EXT MHH OP EXT MSRDP 1.2.840.114 1 [id number] [place] 00:00:00 00:00:00 LOCATION [id number] H ealth [id number] [id number] 2020-09-26 2020-09-26 Outpatient Steven Harris [id number] eClinic 08:45:00 08:45:00 Family Family alWork s Practice Practice 2020-08-11 2020-08-11 Outpatient Steven Harris [id number] eClinic 12:44:00 12:44:00 Family Family alWork s Practice Practice 2020-07-09 2020-07-09 Outpatient Steven Harris [id number] eClinic 17:20:00 17:20:00 Family Family alWork s Practice Practice 2020-06-28 2020-06-28 Outpatient Steven Harris [id number] eClinic 08:30:00 08:30:00 Family Family alWork s Practice Practice 2020-05-26 2020-05-26 Outpatient [facility] [id number] 10:30:00 10:30:00 -[id number] [facility] 2020-03-29 2020-03-29 Outpatient Steven Harris [id number] eClinic 09:19:00 09:19:00 Family Family alWork s Practice Practice 2020-03-28 2020-03-28 Outpatient Steven Harris [id number] eClinic 09:00:00 09:00:00 Family Family alWork s Practice Practice 2020-03-23 2020-03-23 Outpatient Steven Harris [id number] eClinic 08:30:00 08:30:00 Family Family alWork s Practice Practice 2019-12-22 2019-12-22 Outpatient Steven Harris [id number] eClinic 09:30:00 09:30:00 Family Family alWork [facility] Practice Practice 2019-12-08 2019-12-08 Outpatient Steven Harris [id number] eClinic 09:15:00 09:15:00 Family Family alWork s Practice Practice 2019-10-26 2019-10-26 Outpatient Steven Harris [id number] eClinic 12:38:00 12:38:00 Family Family alWork s Practice Practice 2019-10-19 2019-10-19 Outpatient Steven Harris [id number] eClinic 11:00:00 11:00:00 Family Family alWork s Practice Practice Results Test Description Test Test Results Result Source Time Comments Comments SURGICAL 2021-04- Diagnosis1. ?Intradural [facility] PATHOLOGY 08 mass, biopsy: -MENINGIOMA, 16:41:00 WHO GRADE 1, SEE COMMENT. 2. Intradural mass, biopsy: -MENINGIOMA, WHO GRADE 1, SEE COMMENT.Mass, NOSBiopsy, NOSMeningioma, NOSSpondylolisthesis, grade 1 [facility]OCOMMENTSections from both specimens show fragments of tissue with an infiltrate of bland spindle cells in vague nests. ?No areas of pleomorphism or necrosis are noted. ?Scattered psammomatous calcifications are scattered throughout. ?Immunohistochemical stains performed on block 1A show the neoplastic cells are positive for FARHAT and negative for STAT6. 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 [facility] Source1. ?Intrad ural mass frozen2. ?Intradural mass [facility]COClinical InformationClinical History: Intradural massOperative Procedure: Thoracic 3 6 laminotomy/resection of intradural massOperative Findings: Not provided [facility] Section Diagnosis1. ?Intradural mass (FS 1A): Tumor present, favor meningioma. Called to Dr. Metcalf on 04/26/2021 at 10:34 AM Manuel Artegaa MD [facility] DescriptionSpecimen 1 received fresh frozen section diagnosis labeled "intradural mass" consists of a 0.6 x 0.3 x 0.2 cm aggregate of chris-pink soft tissue. ?The specimen is entirely submitted for frozen section diagnosis with residual frozen section tissue submitted in 1A. Specimen 2 "intradural mass" consists of a 1.6 x 1.2 x 0.8 cm chris-pink, vaguely lobulated, hyperemic, glistening soft tissue. ?1 surfaces smooth. ?The opposing surface is dull and cauterized. ?And surfaces are chris-pink, hyperemic and soft. ?All in 2A 2B. -F106/27/2020 11:03 [facility]COMicrosc[facility] DescriptionA microscopic examination has been performed and the findings are incorporated in the diagnosis above. The positive and negative controls for all histochemical and immunohistochemical stains, if performed for this case, have been reviewed and, unless otherwise noted, have been found to be appropriate. [facility] Clinical [id number], 19842, 35727, 19318 Some of the immunohistochemical tests in this panel were developed and their performance characteristics determined by [facility]. ?They have not been cleared or approved by the U. S. Food and Drug Administration. ?The FDA has determined that such clearance or approval is not necessary. ?These tests are used for clinical purposes. ?They should not be regarded as investigational or for research. ?This laboratory is regulated under the Clinical Laboratory Improvement Amendments of the 1988 (CLIA) as qualified to perform high complexity clinical testing._ Specimen examined at [facility].Final diagnosis rendered at [facility].[address] [facility] [place] [facility] ?[address]. [facility] SURGICAL 2021-04- Diagnosis1. ?Intradural [facility] PATHOLOGY 08 mass, biopsy: -MENINGIOMA, 16:41:00 WHO GRADE 1, SEE COMMENT. 2. Intradural mass, biopsy: -MENINGIOMA, WHO GRADE 1, SEE COMMENT.Mass, NOSBiopsy, NOSMeningioma, NOSSpondylolisthesis, grade 1 [facility]ISCOCOMMENTSections from both specimens show fragments of tissue with an infiltrate of bland spindle cells in vague nests. ?No areas of pleomorphism or necrosis are noted. ?Scattered psammomatous calcifications are scattered throughout. ?Immunohistochemical stains performed on block 1A show the neoplastic cells are positive for FARHAT and negative for STAT6. 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 [facility] Source1. ?Intrad ural mass frozen2. ?Intradural mass [facility]COClinical InformationClinical History: Intradural massOperative Procedure: Thoracic 3 6 laminotomy/resection of intradural massOperative Findings: Not provided [facility] Section Diagnosis1. ?Intradural mass (FS 1A): Tumor present, favor meningioma. Called to Dr. Metcalf on 04/26/2021 at 10:34 AM Manuel Arteaga MD [facility] DescriptionSpecimen 1 received fresh frozen section diagnosis labeled "intradural mass" consists of a 0.6 x 0.3 x 0.2 cm aggregate of chris-pink soft tissue. ?The specimen is entirely submitted for frozen section diagnosis with residual frozen section tissue submitted in 1A. Specimen 2 "intradural mass" consists of a 1.6 x 1.2 x 0.8 cm chris-pink, vaguely lobulated, hyperemic, glistening soft tissue. ?1 surfaces smooth. ?The opposing surface is dull and cauterized. ?And surfaces are chris-pink, hyperemic and soft. ?All in 2A 2B. -F106/27/2020 11:03 [facility] DescriptionA microscopic examination has been performed and the findings are incorporated in the diagnosis above. The positive and negative controls for all histochemical and immunohistochemical stains, if performed for this case, have been reviewed and, unless otherwise noted, have been found to be appropriate. [facility] Clinical [id number], 64116, 89314, 28002 Some of the immunohistochemical tests in this panel were developed and their performance characteristics determined by [facility]. ?They have not been cleared or approved by the U. S. Food and Drug Administration. ?The FDA has determined that such clearance or approval is not necessary. ?These tests are used for clinical purposes. ?They should not be regarded as investigational or for research. ?This laboratory is regulated under the Clinical Laboratory Improvement Amendments of the 1988 (CLIA) as qualified to perform high complexity clinical testing._ Specimen examined at [facility].Final diagnosis rendered at [facility].[address] [place] ?[address]. [facility] L Inj/Asp: R 2020-11- Melchor Negrete MD ? ? [facility] knee 11/17/2020 ?2:15 PML Inj/Asp: 19:13:27 R knee on 11/17/2020 2:13 PMIndications: painDetails: 21 G needle, anterolateral approachMedications: 40 mg triamcinolone acetonide 40 MG/ML; 1 mL bupivacaine PF 0.5 %; 1 mL lidocaine 1 %Outcome: tolerated well, no immediate complicationsProcedure, treatment alternatives, risks and benefits explained, specific risks discussed. Consent was given by the patient. Immediately prior to procedure a time out was called to verify the correct patient, procedure, equipment, account support rep and site/side marked as required. Patient was prepped and draped in the usual sterile fashion. Stress Test - 2020-05- Treadmill ONLY 11 10:39:00 [facility] CENTERName: FREDERICK العلي : 1945 Sex: F [place] [id number] [place] [address] Patient Name : FREDERICK العلي MR #: [id number] : 1945 Age/Sex: 74/F Adm Physician : RAUL GIRALDO MD Admit Date : 05/26/20 Location : [place] Room/Bed : REPORT: Myoview Stress Test DATE OF STUDY: 05/26/2020 10:27:00 Stress Test - Treadmill ONLY STUDY: Nuclear gated myocardial perfusion scan report. DETAILS OF STUDY: Nuclear gated myocardial perfusion scan performed as per protocol at Nuclear Medicine Lab at [facility]. Myoview injected 10 millicuries for resting protocol and 30 millicuries for stress protocol. Lexiscan is injected at 0.[address] Raul Giraldo supervised the stress test. I read the nuclear part of the stress test. IMPRESSION: Normal gated myocardial perfusion scan. No evidence of ischemia or scar noted. Left ventricular ejection fraction is 65. Thank you Dr. Raul Giraldo for this procedure consultation. The procedure is done on May 26, 2020, at Nuclear Medicine Lab at [facility]. ___ MD YANG Hill/BETO /[id number] Signature Date Dictated By: BROOKS GREEN MD Transcribed By: BETO on 05/30/20 <Electronically signed by BROOKS GREEN MD><<Signature on File>>06/20/20 4723 COPY TO: SCR MAMM 2018-07- - SCR MAMM BILATERAL LYLA BILATERAL LYLA 01 CAD DIGITALBILATERAL CAD DIGITAL 09:24:12 DIGITAL SCREENING MAMMOGRAM 3D/2D WITH CAD: 07/18/2018CLINICAL: Asymptomatic. Digital breast tomosynthesis was performed in addition to routine CC and MLO views. Current mammographic images were evaluated by either a [employer] M-Vu or a [employer] ImageChecker CAD (computer aided detection system). Comparison is made to exams dated 07/09/2017 mammogram, 06/06/2016 mammogram, and 05/18/2016 mammogram - [facility]. The patient is status post right mastectomy. The tissue of the right mastectomy bed and left breast is predominantly fatty. There are benign calcifications in the left breast. No new suspicious mass, architectural distortion, malignant type calcification, or lymph node abnormality detected. Breast architecture is stable compared to prior exams.IMPRESSION: BENIGNThere is no mammographic evidence of malignancy. Resume annual screening mammography in one year. Baylee Duncan M.D. ar/:07/18/2018 09:24:12 Road Train Driver: Georgina Haney , [facility]letter sent: BIRADS 1-2 Normal Mammogram BI-RADS: 2 Benign POCT-GLUCOSE METER 2017-10-01 08:25:00 Test Item Value Reference Range Interpretation Comme nts POC-GLUCOSE METER (JADEN) (test 108 mg/dL 70-[address] [facility] [place] 7200 code = 1538) [facility] [address]
[2022-05-07 12:13] LABS: Urine Bacteria None Seen /HPF (<20); Urine Mucus Slight /HPF (None Seen); Urine RBC <5 /HPF (None Seen)
[2022-05-07 12:21] LABS: Absolute Lymphocytes (CBC) 1.8 K/uL (0.7-4.9); Hematocrit 25.4 % (36.0-45.0); Lymphocytes % 22.5 % (15.3-44.8); MPV 7.5 fL (7.6-11.3); RBC Red Blood Cell Count 2.85 M/uL (3.86-4.86)
[2022-05-07 12:32] LABS: Albumin 3.5 g/dL (3.4-5.0); Bilirubin Total 0.5 mg/dL (0.2-1.0); Protein, Total 6.2 g/dL (6.4-8.2); Troponin High Sensitivity 26.6 pg/mL (<58.9)
[2022-05-07 12:33] LABS: Potassium 2.7 mmol/L (3.5-5.1)
[2022-05-07] MEDS ORDERED: POTASSIUM 25 MEQ EFFERV TAB ONE (12:43)
[2022-05-07] MEDS ORDERED: POTASSIUM CL SA 10 MEQ TAB PO ONE (12:43)
--- NOTE | 2022-05-07 13:09 | RAD REPORT ---
EXAM DESCRIPTION: Chloé Single View05/07/2022 12:47 pm CLINICAL HISTORY: Generalize weakness and dizziness COMPARISON: none FINDINGS: The lungs appear clear of acute infiltrate. The heart is normal size IMPRESSION: No acute abnormalities displayed
--- NOTE | 2022-05-07 14:58 | ER ---
Nurse's Notes [facility] Name: Karishma العلي Age: 76 yrs Sex: Female : 1945 Arrival Date: 05/07/2022 Time: 11:03 Bed 19 Private MD: Kory Douglas E Diagnosis: Hypokalemia;Muscle weakness (generalized) Presentation: 05/07 11:09 Chief complaint: Patient states: last week on Saturday I started feeling dizzy and weak jh5 on both sides and I feel like i am going to pass out, I waited to come in cause i didn't think it was important but today i am much worse. Abdominal pain, but no fevers, chills... In March I came to see Dr. Douglas and he started taking 2 new medications and I think its both or one of them (KLOR-CON 10MEQ and Furosemide 20mg) and since I started taking them I have been getting worse and worse. Coronavirus screen: Vaccine status: Patient reports being unvaccinated. Client denies travel out of the [place] in the last 14 days. Ebola Screen: Patient negative for fever greater than or equal to 101.5 degrees Fahrenheit, and additional compatible Ebola Virus Disease symptoms Patient denies exposure to infectious person. Patient denies travel to an Ebola-affected area in the 21 days before illness onset. No acute neurological deficit is noted. Initial Sepsis Screen: Does the patient meet any 2 criteria? No. Patient's initial sepsis screen is negative. Does the patient have a suspected source of infection? No. Patient's initial sepsis screen is negative. Risk Assessment: Do you want to hurt yourself or someone else? Patient reports no desire to harm self or others. Onset of symptoms was May 01, 2022. 11:09 Method Of Arrival: Wheelchair 5 11:09 Acuity: JUDIE 3 jh5 Triage Assessment: 11:16 General: Appears in no apparent distress. obese, well groomed, well developed, Behavior 5 is calm, cooperative, appropriate for age. Pain: Complains of pain in abdomen. Neuro: Reports dizziness, weakness. Historical: - Allergies: 11:15 Bactroban; 5 11:15 Benicar; 5 11:15 Betadine; 5 11:15 Levaquin; jh5 11:15 Lodine; jh5 11:15 Premarin; jh5 - PMHx: 11:16 Hypertensive disorder; Diabetes mellitus; Hypercholesterolemia; jh5 - Immunization history:: Adult Immunizations up to date. - Social history:: Smoking status: Patient denies any tobacco usage or history of. Screenin:29 [facility] ED Fall Risk Assessment (Adult) Score/Fall Risk Level 3 or more points = High hb Risk Oriented to surroundings, Maintained a safe environment. Abuse screen: Denies threats or abuse. Denies injuries from another. Nutritional screening: No deficits noted. Tuberculosis screening: No symptoms or risk factors identified. Assessment: 11:30 General: Appears in no apparent distress. Behavior is calm, cooperative. Pain: Denies hb pain. Neuro: Level of Consciousness is awake, alert, obeys commands, Oriented to person, place, time, situation, Reports dizziness. Cardiovascular: Patient's skin is warm and dry. Respiratory: Respiratory effort is even, unlabored, Respiratory pattern is regular, symmetrical. GI: No signs and/or symptoms were reported involving the gastrointestinal system. : No signs and/or symptoms were reported regarding the genitourinary system. EENT: No signs and/or symptoms were reported regarding the EENT system. Derm: Skin is pink, warm \T\ dry. Musculoskeletal: Reports generalized weakness. 12:29 Reassessment: Patient appears in no apparent distress at this time. Patient and/or hb family updated on plan of care and expected duration. Pain level reassessed. Patient is alert, oriented x 3, equal unlabored respirations, skin warm/dry/pink. 14:03 Reassessment: Patient appears in no apparent distress at this time. Patient and/or hb family updated on plan of care and expected duration. Pain level reassessed. Patient is alert, oriented x 3, equal unlabored respirations, skin warm/dry/pink. 14:56 Reassessment: Patient appears in no apparent distress at this time. Patient and/or hb family updated on plan of care and expected duration. Pain level reassessed. Patient is alert, oriented x 3, equal unlabored respirations, skin warm/dry/pink. Vital Signs: 11:09 BP 144 / 74; Pulse 76; Resp 16; Temp 97.9; Pulse Ox 98% ; Weight 84.37 kg; Height 5 ft. jh5 5 in. (165.10 cm); Pain 3/10; 12:29 BP 100 / 54; Pulse 66; Resp 16; Pulse Ox 97% on R/A; Pain 0/10; hb 13:03 BP 102 / 53; Pulse 69; Resp 16; Pulse Ox 97% on R/A; hb 14:02 BP 94 / 51; Pulse 72; Resp 15; Pulse Ox 98% on R/A; hb 14:56 BP 109 / 60; Pulse 70; Resp 16; Pulse Ox 100% on R/A; hb 11:09 Body Mass Index 30.95 (84.37 kg, 165.10 cm) [facility] ED Course: 11:03 Patient arrived in ED. mr 11:03 Kory Douglas MD is Private Physician. mr 11:04 Mic Schmitz DO is Attending Physician. ms3 11:15 Triage completed. 5 11:16 Arm band placed on right wrist. [facility] 11:38 Samantha Collins RN is Primary Nurse. vc1 11:54 Missed attempt(s): 22 gauge in left wrist. rs5 12:01 Inserted saline lock: 22 gauge in left wrist, using aseptic technique. Blood collected. hb 12:29 Patient has correct armband on for positive identification. hb 12:49 XRAY Chest (1 view) In Process Unspecified. EDMS 14:57 Kory Douglas MD is Referral Physician. ms3 15:19 No provider procedures requiring assistance completed. IV discontinued, intact, hb bleeding controlled, No redness/swelling at site. Administered Medications: 12:52 Drug: Potassium Effervescent Tablet 50 mEq Route: PO; hb 12:52 Drug: Potassium Chloride 20 mEq Route: PO; hb Medication: 15:20 VIS not applicable for this client. hb Outcome: 14:57 Discharge ordered by . ms3 15:20 Discharged to home via wheelchair, with family. hb 15:20 Condition: stable 15:20 Discharge instructions given to patient, family, Instructed on discharge instructions, follow up and referral plans. medication usage, Demonstrated understanding of instructions, follow-up care, medications. 15:20 Patient left the ED. hb Signatures: Dispatcher [employer] EDWY Karishma Neumann mr KangAde RN RN Mic Schmitz DO DO ms3 Kalli Velásquez RN RN 5 Samantha Collins RN RN [facility] Sohail Jackson rs5
--- NOTE | 2022-05-07 14:58 | EDPHYS ---
Physician Documentation [facility] Name: Karishma العلي Age: 76 yrs Sex: Female : 1945 Arrival Date: 05/07/2022 Time: 11:03 Bed 19 Private MD: Kory Douglas E ED Physician Mic Schmitz HPI: 05/07 12:39 This 76 yrs old Female presents to ER via Wheelchair with complaints of ms3 Dizziness, General Weakness. 12:39 The patient presents with lightheadedness. Onset: The symptoms/episode began/occurred 6 ms3 day(s) ago. Context:. Modifying factors: The symptoms are alleviated by nothing, the symptoms are aggravated by nothing. Associated signs and symptoms: The patient has no apparent associated signs or symptoms. The patient presents to the emergency department with weakness of the entire body, generalized weakness. Onset: The symptoms/episode began/occurred 6 day(s) ago. 12:40 Severity of symptoms: At their worst the symptoms were moderate in the emergency ms3 department the symptoms are unchanged Pain is currently a 0 / 10. Patient's baseline: Neuro: alert and fully oriented, Motor: no deficits, Ambulation: walks without assistance, Speech: normal. Historical: - Allergies: 11:15 Bactroban; jh5 11:15 Benicar; jh5 11:15 Betadine; jh5 11:15 Levaquin; jh5 11:15 Lodine; jh5 11:15 Premarin; jh5 - PMHx: 11:16 Hypertensive disorder; Diabetes mellitus; Hypercholesterolemia; jh5 - Immunization history:: Adult Immunizations up to date. - Social history:: Smoking status: Patient denies any tobacco usage or history of. ROS: 12:41 Constitutional: Negative for fever, and chills. Neck: Negative for injury, pain, and ms3 swelling, Cardiovascular: Negative for chest pain, and palpitations. Respiratory: Negative for shortness of breath, cough, wheezing, and pleuritic chest pain, Abdomen/GI: Negative for abdominal pain, nausea, vomiting, diarrhea, and constipation, MS/Extremity: Negative for injury and deformity, Skin: Negative for injury, rash, and discoloration. 12:41 Constitutional: Positive for generalized weakness. 12:41 All other systems are negative. Exam: 12:14 ECG was reviewed by the Attending Physician. ms3 12:41 Constitutional: This is a well developed, well nourished patient who is awake, alert, ms3 and in no acute distress. Head/Face: Normocephalic, atraumatic. Neck: Trachea midline, no cervical lymphadenopathy. Supple, full range of motion without nuchal rigidity, or vertebral point tenderness. No Meningismus. Chest/axilla: Normal chest wall appearance and motion. Nontender with no deformity. Cardiovascular: Regular rate and rhythm with a normal S1 and S2. No gallops, murmurs, or rubs. Normal PMI, no JVD. No pulse deficits. Respiratory: Lungs have equal breath sounds bilaterally, clear to auscultation and percussion. No rales, rhonchi or wheezes noted. No increased work of breathing, no retractions or nasal flaring. Abdomen/GI: Soft, non-tender, with normal bowel sounds. No distension or tympany. No guarding or rebound. No evidence of tenderness throughout. Skin: Warm, dry with normal turgor. Normal color with no rashes, no lesions, and no evidence of cellulitis. MS/ Extremity: Pulses equal, no cyanosis. Neurovascular intact. Full, normal range of motion. Neuro: Awake and alert, GCS 15, oriented to person, place, time, and situation. Cranial nerves II-XII grossly intact. Motor strength 5/5 in all extremities. Sensory grossly intact. Cerebellar exam normal. Normal gait. Vital Signs: 11:09 BP 144 / 74; Pulse 76; Resp 16; Temp 97.9; Pulse Ox 98% ; Weight 84.37 kg; Height 5 ft. [facility] 5 in. (165.10 cm); Pain 3/10; 12:29 BP 100 / 54; Pulse 66; Resp 16; Pulse Ox 97% on R/A; Pain 0/10; hb 13:03 BP 102 / 53; Pulse 69; Resp 16; Pulse Ox 97% on R/A; hb 14:02 BP 94 / 51; Pulse 72; Resp 15; Pulse Ox 98% on R/A; hb 14:56 BP 109 / 60; Pulse 70; Resp 16; Pulse Ox 100% on R/A; hb 11:09 Body Mass Index 30.95 (84.37 kg, 165.10 cm) [facility] MDM: 11:17 Patient medically screened. ms3 12:41 Differential diagnosis: cardiac arrhythmia, generalized weakness, near-syncope, vertigo.ms3 14:57 Data reviewed: vital signs, nurses notes, lab test result(s), EKG, radiologic studies, ms3 and as a result, I will discharge patient. Counseling: I had a detailed discussion with the patient and/or guardian regarding: the historical points, exam findings, and any diagnostic results supporting the discharge/admit diagnosis, lab results, radiology results, the need for outpatient follow up, to return to the emergency department if symptoms worsen or persist or if there are any questions or concerns that arise at home. Special discussion: I discussed with the patient/guardian in detail that at this point there is no indication for admission to the hospital. It is understood, however, that if the symptoms persist or worsen the patient needs to return immediately for re-evaluation. ED course: Discussed labs, imaging with patient and her . They understand/ agree with plan. All questions answered. Return precautions discussed to include worsening symptoms, or any other concerns. Patient to follow up with her PMD in 2-3 days. On re-evaluation patient is a/o x4, nad, non-toxic appearing, speaking full sentences.. 05/07 11:17 Order name: CBC with Diff; Complete Time: 12:38 ms3 05/07 11:17 Order name: CMP; Complete Time: 12:38 ms3 05/07 11:17 Order name: Urine Microscopic Only; Complete Time: 12:38 ms3 05/07 11:17 Order name: Troponin HS; Complete Time: 12:38 ms3 05/07 13:12 Order name: Magnesium; Complete Time: 13:55 ms3 05/07 13:56 Order name: Potassium; Complete Time: 14:51 ms3 05/07 11:17 Order name: IV Saline Lock; Complete Time: 12:27 ms3 05/07 11:17 Order name: Labs collected and sent; Complete Time: 11:43 ms3 05/07 11:17 Order name: Urine Dipstick-Ancillary (obtain specimen); Complete Time: 11:43 ms3 05/07 11:17 Order name: XRAY Chest (1 view); Complete Time: 13:12 ms3 05/07 11:17 Order name: EKG; Complete Time: 11:18 ms3 05/07 11:17 Order name: Cardiac monitoring; Complete Time: 11:43 ms3 05/07 11:17 Order name: EKG - Nurse/Tech; Complete Time: 11:43 ms3 05/07 11:17 Order name: O2 Per Protocol; Complete Time: 11:43 ms3 05/07 11:17 Order name: O2 Sat Monitoring; Complete Time: 11:43 ms3 EC:14 Rate is 69 beats/min. Rhythm is regular. QRS [employer] is Normal. [place] interval is normal. QRS ms3 interval is normal. QT interval is normal. Clinical impression: NSR w/ Non-specific ST/T Changes. Interpreted by me. Reviewed by me. Administered Medications: 12:52 Drug: Potassium Effervescent Tablet 50 mEq Route: PO; hb 12:52 Drug: Potassium Chloride 20 mEq Route: PO; hb Disposition Summary: 05/07/22 14:57 Discharge Ordered Location: Home ms3 Condition: Stable ms3 Diagnosis - Hypokalemia ms3 - Muscle weakness (generalized) ms3 Followup: ms3 - With: Kory Douglas MD - When: 2 - 3 days - Reason: Recheck today's complaints Discharge Instructions: - Discharge Summary Sheet ms3 - Potassium Content of Foods ms3 - Weakness, [id number] ms3 - Hypokalemia ms3 Forms: - Medication Reconciliation Form ms3 - Thank You Letter ms3 - Antibiotic Education ms3 - Prescription Opioid Use ms3 Signatures: Dispatcher [employer] EDMS Ade Kang RN RN Mic Schmitz DO DO ms3 Kalli Velásquez, RN RN jh5 Corrections: (The following items were deleted from the chart) 12:54 12:14 Rate is 67 beats/min. Rhythm is regular. QRS [employer] is Normal. [place] interval is ms3 normal. QRS interval is normal. QT interval is normal. Clinical impression: Normal ECG. Interpreted by me. Reviewed by me. ms3
[2022-05-07 15:42] VITALS: TEMP 97.9
[2022-05-07 15:47] VITALS: BP 109/60; O2SAT 100
--- NOTE | 2022-05-08 15:17 | EKG ---
Test Date: 2022-05-07 Test Time: 11:26:11 Senior Java J2Ee Developer: DC MEASUREMENT RESULTS: Intervals: Rate: 71 [place]: 148 QRSD: 88 QT: 436 QTc: 473 [place]: P: 67 [place]: 148 QRS: 52 T: -39 INTERPRETIVE STATEMENTS: Normal sinus rhythm ST & T wave abnormality, consider anterior ischemia Prolonged QT Abnormal ECG No previous ECG available for comparison Electronically Signed On 05-08-22 15:15:27 PROPERTY DISPOSAL OFFICER by Richard Flores
--- NOTE | 2022-05-09 14:02 | EKG ---
Test Date: 2022-05-07 Test Time: 11:31:[address] Judge: DC MEASUREMENT RESULTS: Intervals: Rate: 69 [place]: 150 QRSD: 84 QT: 382 QTc: 409 [place]: P: 57 [place]: 150 QRS: 52 T: -25 INTERPRETIVE STATEMENTS: Normal sinus rhythm ST & T wave abnormality, consider anterolateral ischemia Abnormal ECG Compared to ECG 05/07/2022 11:26:11 Prolonged QT interval no longer present ST (T wave) deviation still present Possible ischemia still present Electronically Signed On 05-09-22 14:00:21 DECONTAMINATION TECHNICIAN by Richard Flores
== END 2022-05-07 15:20 | disposition home or self-care (01) ==
LOC: ER 11:00
DX: E87.6 Hypokalemia (principal); E11.9 Type 2 diabetes mellitus without complications; I10 Essential (primary) hypertension; Z88.1 Allergy status to other antibiotic agents; Z88.8 Allergy status to other drugs, medicaments and biological substances; Z91.048 Other nonmedicinal substance allergy status
CPT/HCPCS: 36415; 71045; 80053; 81015; 83735; 84132; 84484; 85025; 93005; 99284

== ENCOUNTER 2023-09-23 20:21 | Emergency (ER) | payer OTHER ==
[2023-09-23] MEDS ORDERED: ONDANSETRON 4 MG/2 ML VIAL ONE (21:12)
[2023-09-23] MEDS ORDERED: METOCLOPRAMIDE 10 MG/2mL INJ ONE (21:12)
[2023-09-23] MEDS ORDERED: MORPHINE 4 MG/ML SYR ONE ×2 (21:13→23:30)
[2023-09-23] MEDS ORDERED: NA CHLORIDE 0.9% 1,000 ML ONE (21:13)
[2023-09-23 21:22] LABS: Specific Gravity 1.008 (1.005-1.030); Sqamous Epithelial <5 /HPF (None Seen); Urine Bacteria None Seen /HPF (<20); Urine Bilirubin NEGATIVE (Negative); Urine Blood Trace (Negative); Urine Clarity Turbid (Clear); Urine Color Colorless (Yellow); Urine Culture Reflex Order NOT NEEDED; Urine Glucose NEGATIVE (Negative); Urine Ketones NEGATIVE (Negative); Urine Microscopic Reflex YN ORDER UMIC; Urine Mucus Slight /HPF (None Seen); Urine Nitrite NEGATIVE (Negative); Urine Protein 1+ (Negative); Urine RBC <5 /HPF (None Seen); Urine Urobilinogen Normal (Normal); Urine WBC <5 /HPF (<5); Urine pH 5.5 (5.0-7.0)
[2023-09-23 21:39] LABS: Albumin 3.9 g/dL (3.4-5.0); Albumin/Globulin Ratio 1.2 (1.1-1.8); Anion Gap 10.5 mEq/L (5.0-15.0); Bilirubin Total 0.5 mg/dL (0.2-1.0); Globulin 3.3 g/dL (2.3-3.5); Potassium 3.5 mEq/L (3.5-5.1); Protein, Total 7.2 g/dL (6.4-8.2)
[2023-09-23 21:45] LABS: Absolute Basophils 0.1 K/uL (0-0.5); Absolute Eosinophils 0.1 K/uL (0-0.5); Absolute Monocytes 0.7 K/uL (0.1-1.3); Absolute Neutrophil 3.6 K/uL (1.8-8.0); Hematocrit 37.3 % (36.0-45.0); Hemoglobin 12.9 g/dL (12.0-15.0); Lymphocytes % 30.9 % (15.3-44.8); MCH 30.2 pg (27.0-35.0); MCHC 34.5 g/dL (32.0-36.0); MCV 87.6 fL (80-100); MPV 7.9 fL (7.6-11.3); Monocytes % 10.4 % (3.3-12.3); Neutrophils % 55.7 % (41.7-73.7); Platelets 195 thou/uL (152-406); RBC Red Blood Cell Count 4.26 M/uL (3.86-4.86)
--- NOTE | 2023-09-23 22:24 | RAD REPORT ---
EXAM DESCRIPTION: CTAbdomen Pelvis W Contrast - 09/23/2023 10:14 pm CLINICAL HISTORY: Abdominal pain. Abdominal distention;Abd pain COMPARISON: No comparisons TECHNIQUE: Biphasic CT imaging of the abdomen and pelvis was performed with 100 ml non-ionic IV cont rast. All CT scans are performed using dose optimization technique as appropriate and may include automated exposure control or mA/KV adjustment according to patient size. FINDINGS: The lung bases are clear. The liver, spleen, pancreas, adrenal glands and kidneys are within normal limits. No bowel obstruction, free air, free fluid or abscess. The appendix is not identified as a discrete s tructure, however, no secondary findings of appendicitis are identified. There is mild thickening of the transverse colon seen with gaseous distention. No evidence of significant lymphadenopathy. No suspicious bony findings. L5-S1 vacuum disc degeneration. IMPRESSION: Mild thickening of the transverse colon with gaseous distention could indicate colitis. Otherwise, no acute abnormality seen.
--- NOTE | 2023-09-23 23:19 | ER ---
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 Coronavirus screen: At this time, the client does not indicate any symptoms associated with coronavirus-19. Ebola Screen: No symptoms or risks identified at this time. Risk Assessment: Do you want to hurt yourself or someone else? Patient reports no desire to harm self or others. Onset of symptoms was September 23, 2023. 20:37 Method Of Arrival: Wheelchair as6 20:37 Acuity: JUDIE 3 as6 Historical: - Allergies: 20:38 Betadine; as6 20:38 Levaquin; as6 20:38 Lodine; as6 20:38 Benicar; as6 20:38 Bactroban; as6 20:38 Premarin; as6 - PMHx: 20:38 diabetes mellitus; Hypercholesterolemia; Hypertensive disorder; as6 - PSHx: 20:38 Cholecystectomy; back; as6 - Immunization history:: Adult Immunizations up to date. - Infectious Disease History:: Denies. - Social history:: Smoking status: Patient denies any tobacco usage or history of. - Family history:: not pertinent. Screenin:05 [facility] ED Fall Risk Assessment (Adult) History of falling in the last 3 months, jj7 including since admission No falls in past 3 months (0 pts) Confusion or Disorientation No (0 pts) Intoxicated or Sedated No (0 pts) Impaired Gait No (0 pts) Mobility Assist Device Used No (0 pt) Altered Elimination No (0 pt) Score/Fall Risk Level 0 - 2 = Low Risk Oriented to surroundings, Maintained a safe environment, Educated pt \T\ family on fall prevention, incl call for assistance when getting out of bed. Abuse screen: Denies threats or abuse. Nutritional screening: No deficits noted. Tuberculosis screening: No symptoms or risk factors identified. Assessment: 21:05 General: Appears in no apparent distress. uncomfortable, Behavior is calm, cooperative, jj7 appropriate for age. Pain: Complains of pain in abdomen. GI: Abd is soft and non tender X 4 quads. Reports lower abdominal pain, upper abdominal pain, Patient currently denies diarrhea, nausea, vomiting. Vital Signs: 20:39 BP 191 / 85; Pulse 82; Resp 18 S; Temp 98.5(O); Pulse Ox 94% on R/A; Weight 85.28 kg as6 (R); Height 5 ft. 5 in. (R); Pain 8/10; 21:30 BP 190 / 77; Pulse 80; Resp 17; Pulse Ox 98% ; jj7 22:30 BP 172 / 71; Pulse 81; Resp 16; Pulse Ox 96% ; jj7 23:45 BP 185 / 74; Pulse 83; Resp 17; Temp 97.5; Pulse Ox 97% ; Pain 0/10; jj7 20:39 Body Mass Index 31.28 (85.28 kg, 165.1 cm) as6 20:39 Pain Scale: Adult as6 23:45 Pain Scale: Adult jj7 Romel Coma Score: 09/23 04:11 Eye Response: spontaneous(4). Motor Response: obeys commands(6). Verbal Response: sp4 oriented(5). Total: 15. ED Course: 09/22 20:25 Patient arrived in ED. mr 20:25 Kory Douglas MD is Private Physician. mr 20:28 Zafar Lu MD is Attending Physician. sp4 20:37 Arm band placed on. as6 20:38 Triage completed. as6 20:49 Babs Spaulding, PJ is Primary Nurse. jj7 21:05 Patient has correct armband on for positive identification. Bed in low position. Call jj7 light in reach. Adult w/ patient. Provided Education on: USE OF CALL ORTEGA. 21:05 No provider procedures requiring assistance completed. Inserted saline lock: 20 gauge jj7 in right forearm, using aseptic technique. Blood collected. 21:20 Troponin HS Sent. jj7 21:21 CRP Sent. jj7 21:21 CBC with Diff Sent. jj7 21:21 CMP Sent. jj7 21:21 Lipase Sent. jj7 21:21 Urinalysis w/ reflexes Sent. jj7 21:51 EKG done, by ED staff, reviewed by Zafar Lu MD. oe 22:15 CT Abd/Pelvis - IV Contrast Only In Process Unspecified. EDMS 23:17 Kory Douglas MD is Referral Physician. sp4 23:45 IV discontinued, intact, bleeding controlled, No redness/swelling at site. Pressure jj7 dressing applied. Administered Medications: 21:21 Drug: morphine IVP or IV 4 mg IVP once over 4 mins Route: IVP; Infused Over: 4 mins; jj7 Site: left forearm; 23:50 Follow up: Response: Marked relief of symptoms; Pain is decreased jj7 21:21 Drug: Ondansetron IVP 4 mg IVP once; over 2 minutes Route: IVP; Site: left forearm; jj7 23:50 Follow up: Response: No adverse reaction jj7 21:21 Drug: metoCLOPramide IVP 10 mg IVP once; over 1 to 2 minutes Route: IVP; Site: left j forearm; 23:50 Follow up: Response: Marked relief of symptoms jj7 21:25 Drug: NS 0.9% IV 1000 ml IV at 125 ml/hr continuous Route: IV; Rate: 125 ml/hr; Site: jj7 left forearm; 23:52 Follow up: IV Status: Order to discontinue infusion; IV Intake: 300ml jj7 23:49 Drug: Cephalexin PO 500 mg PO once Route: PO; jj7 23:51 Follow up: Response: No adverse reaction jj7 23:49 Drug: metroNIDAZOLE PO 500 mg PO once Route: PO; jj7 23:51 Follow up: Response: No adverse reaction jj7 23:50 Drug: morphine IVP or IV 4 mg IVP once over 4 mins Route: IVP; Infused Over: 4 mins; jj7 Site: left forearm; 23:51 Follow up: Response: Marked relief of symptoms; Pain is decreased jj7 23:50 Drug: Alum-Mag Hydroxide-Simeth PO Suspension (200 mg-200 mg-20 mg/5 mL) 30 ml PO once jj7 Route: PO; 23:51 Follow up: Response: No adverse reaction jj7 23:50 Drug: Dicyclomine IM 20 mg IM once Route: IM; Site: left deltoid; jj7 23:51 Follow up: Response: No adverse reaction jj7 23:50 Drug: Famotidine PO 20 mg PO once Route: PO; jj7 23:51 Follow up: Response: No adverse reaction jj7 Medication: 21:05 VIS not applicable for this client. jj7 Intake: 23:52 IV: 300ml; Total: 300ml. jj7 Outcome: 23:18 Discharge ordered by spCollette 23:45 Discharged to home ambulatory, with significant other, jj7 23:45 Condition: improved 23:45 Discharge instructions given to patient, significant other, Instructed on discharge instructions, follow up and referral plans. medication usage, Demonstrated understanding of instructions, follow-up care, medications, Prescriptions given X 5 23:45 Patient left the ED. jj7 Signatures: Dispatcher [employer] EDNE Karishma Neumann, Drew Reg mr [place], ThomStan Siegel RN RN as6 Babs Spaulding RN RN jj7 Zafar Lu MD MD sp4 Corrections: (The following items were deleted from the chart) 23:57 23:56 Patient left the ED. jj7 jj7
--- NOTE | 2023-09-23 23:19 | EDPHYS ---
Physician Documentation [facility] Name: Karishma العلي Age: 78 yrs Sex: Female : 1945 Arrival Date: 09/23/2023 Time: 20:21 Bed 20 Private MD: Kory Douglas E ED Physician Zafar Lu HPI: 09/22 20:28 This 78 yrs old Female presents to ER via Unassigned with complaints of sp4 Abdominal Pain. 09/23 04:11 78-year-old female presents with acute onset of upper abdominal pain and epigastric sp4 pain starting 30 minutes prior to arrival. Denied additional symptoms. Patient has history of spinal laminectomy, cholecystectomy, total abdominal hysterectomy and appendectomy. Historical: - Allergies: 09/22 20:38 Betadine; as6 20:38 Levaquin; as6 20:38 Lodine; as6 20:38 Benicar; as6 20:38 Bactroban; as6 20:38 Premarin; as6 - PMHx: 20:38 diabetes mellitus; Hypercholesterolemia; Hypertensive disorder; as6 - PSHx: 20:38 Cholecystectomy; back; as6 - Immunization history:: Adult Immunizations up to date. - Infectious Disease History:: Denies. - Social history:: Smoking status: Patient denies any tobacco usage or history of. - Family history:: not pertinent. ROS: 09/23 04:11 Constitutional: Negative for fever, chills, and weight loss, positive for epigastric sp4 pain All other systems are negative, Exam: 04:11 Constitutional: This is a well developed, well nourished patient who is awake, alert, sp4 uncomfortable appearing female Head/Face: Normocephalic, atraumatic. Eyes: Pupils equal round and reactive to light, extra-ocular motions intact. Lids and lashes normal. Conjunctiva and sclera are not injected. Cornea within normal limits. Periorbital areas with no swelling, redness, or edema. ENT: Nares patent. No nasal discharge, no septal abnormalities noted. Tympanic membranes are normal and external auditory canals are clear. Oropharynx with no redness, swelling, or masses, exudates, or evidence of obstruction, uvula midline. Mucous membranes moist. Neck: Trachea midline, no thyromegaly or masses palpated, and no cervical lymphadenopathy. Supple, full range of motion without nuchal rigidity, or vertebral point tenderness. Chest/axilla: Normal chest wall appearance and motion. Nontender with no deformity. No lesions are appreciated. Cardiovascular: Regular rate and rhythm with a normal S1 and S2. No gallops, murmurs, or rubs. Normal PMI, no JVD. No pulse deficits. Respiratory: Lungs have equal breath sounds bilaterally, clear to auscultation and percussion. No rales, rhonchi or wheezes noted. No increased work of breathing, no retractions or nasal flaring. Abdomen/GI: Soft, with normal bowel sounds. No distension or tympany. No guarding or rebound. No evidence of tenderness throughout. Back: No spinal tenderness. No costovertebral tenderness. Skin: Warm, dry with normal turgor. Normal color with no rashes, no lesions, and no evidence of cellulitis. MS/ Extremity: Pulses equal, no cyanosis. Neurovascular intact. Full, normal range of motion. Neuro: Awake and alert, GCS 15, oriented to person, place, time, and situation. Cranial nerves II-XII grossly intact. Motor strength 5/5 in all extremities. Sensory grossly intact. Psych: Awake, alert, with orientation to person, place and time. Behavior, mood, and affect are within normal limits 04:11 ECG was reviewed by the Attending Physician. EKG at 2147 reveals normal sinus rhythm at sp4 the rate of 80 Vital Signs: 09/22 20:39 BP 191 / 85; Pulse 82; Resp 18 S; Temp 98.5(O); Pulse Ox 94% on R/A; Weight 85.28 kg as6 (R); Height 5 ft. 5 in. (R); Pain 8/10; 21:30 BP 190 / 77; Pulse 80; Resp 17; Pulse Ox 98% ; jj7 22:30 BP 172 / 71; Pulse 81; Resp 16; Pulse Ox 96% ; jj7 23:45 BP 185 / 74; Pulse 83; Resp 17; Temp 97.5; Pulse Ox 97% ; Pain 0/10; jj7 20:39 Body Mass Index 31.28 (85.28 kg, 165.1 cm) as6 20:39 Pain Scale: Adult as6 23:45 Pain Scale: Adult jj7 Spur Coma Score: 05/07 04:11 Eye Response: spontaneous(4). Motor Response: obeys commands(6). Verbal Response: sp4 oriented(5). Total: 15. MDM: 09/22 20:32 Patient medically screened. sp4 22:30 ED course: EXAM DESCRIPTION: CTAbdomen Pelvis W Contrast - 09/23/2023 10:14 pm CLINICAL sp4 HISTORY: Abdominal pain. Abdominal distention;Abd pain COMPARISON: No comparisons TECHNIQUE: Biphasic CT imaging of the abdomen and pelvis was performed with 100 ml non-ionic IV contrast. All CT scans are performed using dose optimization technique as appropriate and may include automated exposure control or mA/KV adjustment according to patient size. FINDINGS: The lung bases are clear. The liver, spleen, pancreas, adrenal glands and kidneys are within normal limits. No bowel obstruction, free air, free fluid or abscess. The appendix is not identified as a discrete structure, however, no secondary findings of appendicitis are identified. There is mild thickening of the transverse colon seen with gaseous distention. No evidence of significant lymphadenopathy. No suspicious bony findings. L5-S1 vacuum disc degeneration. IMPRESSION: Mild thickening of the transverse colon with gaseous distention could indicate colitis. Otherwise, no acute abnormality seen. Signed By: Jonn Verdugo MD Signed AT: 09/23/23 2224. 09/23 04:11 Differential Diagnosis altered mental status, sepsis, flu. Data reviewed: vital signs, sp4 nurses notes, old medical records, lab test result(s), EKG, radiologic studies, CT scan. Consideration of Admission/Observation Escalation of care including admission/observation considered. ED course: Has improved after medications. Stable for discharge home. 09/22 20:28 Order name: CBC with Diff; Complete Time: 22:30 sp4 09/22 20:28 Order name: CMP; Complete Time: 22:30 sp4 09/22 20:28 Order name: Lipase; Complete Time: 22:30 sp4 09/22 20:28 Order name: Urinalysis w/ reflexes; Complete Time: 22:30 4 09/22 20:39 Order name: CRP 4 09/22 20:39 Order name: Troponin HS 4 09/22 20:40 Order name: CT Abd/Pelvis - IV Contrast Only; Complete Time: 22:30 4 09/22 20:28 Order name: IV Saline Lock; Complete Time: 21:21 sp4 09/22 20:28 Order name: Labs collected and sent; Complete Time: 21: sp4 09/22 20:39 Order name: EKG - Nurse/Tech; Complete Time: 22:42 sp4 09/22 20:39 Order name: O2 Per Protocol; Complete Time: 21:20 sp4 09/22 20:39 Order name: O2 Sat Monitoring; Complete Time: 21:20 sp4 EC:11 Rate is 80 beats/min. Rhythm is regular, Normal Sinus Rhythm. QRS [place] is Normal. GA sp4 interval is normal. QRS interval is normal. QT interval is normal. No Q waves. T waves are Inverted in leads V4, V5. T waves are Flattened in lead V6. No ST changes noted. Clinical impression: No evidence of ischemia. Interpreted by me. Reviewed by me. Administered Medications: 09/22 21:21 Drug: morphine IVP or IV 4 mg IVP once over 4 mins Route: IVP; Infused Over: 4 mins; jj7 Site: left forearm; 23:50 Follow up: Response: Marked relief of symptoms; Pain is decreased jj7 21:21 Drug: Ondansetron IVP 4 mg IVP once; over 2 minutes Route: IVP; Site: left forearm; j7 23:50 Follow up: Response: No adverse reaction jj7 21:21 Drug: metoCLOPramide IVP 10 mg IVP once; over 1 to 2 minutes Route: IVP; Site: left [facility] forearm; 23:50 Follow up: Response: Marked relief of symptoms j7 21:25 Drug: NS 0.9% IV 1000 ml IV at 125 ml/hr continuous Route: IV; Rate: 125 ml/hr; Site: [facility] left forearm; 23:52 Follow up: IV Status: Order to discontinue infusion; IV Intake: 300ml jj7 23:49 Drug: Cephalexin PO 500 mg PO once Route: PO; jj7 23:51 Follow up: Response: No adverse reaction jj7 23:49 Drug: metroNIDAZOLE PO 500 mg PO once Route: PO; jj7 23:51 Follow up: Response: No adverse reaction j7 23:50 Drug: morphine IVP or IV 4 mg IVP once over 4 mins Route: IVP; Infused Over: 4 mins; jj7 Site: left forearm; 23:51 Follow up: Response: Marked relief of symptoms; Pain is decreased jj7 23:50 Drug: Alum-Mag Hydroxide-Simeth PO Suspension (200 mg-200 mg-20 mg/5 mL) 30 ml PO once jj7 Route: PO; 23:51 Follow up: Response: No adverse reaction jj7 23:50 Drug: Dicyclomine IM 20 mg IM once Route: IM; Site: left deltoid; jj7 23:51 Follow up: Response: No adverse reaction jj7 23:50 Drug: Famotidine PO 20 mg PO once Route: PO; jj7 23:51 Follow up: Response: No adverse reaction jj7 Disposition Summary: 09/23/23 23:18 Discharge Ordered Notes: Location: Home sp4 Problem: new sp4 Symptoms: have improved sp4 Condition: Stable sp4 Diagnosis - Noninfective gastroenteritis and colitis, unspecified sp4 - Acute transverse colitis sp4 Followup: sp4 - With: Kory Douglas MD - When: 7 - 10 days - Reason: Recheck today's complaints Discharge Instructions: - Discharge Summary Sheet sp4 - E. Coli Infection sp4 Forms: - Patient Portal Instructions sp4 Prescriptions: - Cephalexin 500 mg Oral Capsule - take 1 capsule ORAL route every 12 hours for 10 days; 20 capsule; Refills: 0, sp4 Product Selection Permitted - Flagyl 500 mg Oral Tablet - take 1 tablet ORAL route every 8 hours for 10 days; 30 tablet; Refills: 0, sp4 Product Selection Permitted - Tramadol 50 mg Oral tablet - take 1 tablet ORAL route every 8 hours as needed; 20 tablet; Refills: 0, sp4 Product Selection Permitted - promethazine 25 mg Oral tablet - take 1 tablet ORAL route every 6 hours As needed PRN pain; 30 tablet; Refills: sp4 0, Product Selection Permitted - dicyclomine 20 mg Oral tablet - take 1 tablet ORAL route 3 times per day PRN stomach pain; 30 tablet; Refills: sp4 0, Product Selection Permitted Signatures: Dispatcher [employer] Stan Orona RN RN as6 Babs Spaulding RN RN jj7 Zafar Lu MD MD sp4 Corrections: (The following items were deleted from the chart) 20:29 20:29 CBC+H.LAB.BRZ ordered. EDMS EDMS 20: 20:29 COMPREHENSIVE METABOLIC PANEL+C.LAB.BRZ ordered. EDMS EDMS 20: 20:29 LIPASE+C.LAB.BRZ ordered. EDMS EDMS : 20:29 Urinalysis+U.LAB.BRZ ordered. EDMS EDMS
[2023-09-23] MEDS ORDERED: MAGNES/ALUMIN/SIMET 30ML UCUP ONE (23:29)
[2023-09-23] MEDS ORDERED: DICYCLOMINE HCL 20 MG/2 ML AMP IM ONE (23:30)
[2023-09-23] MEDS ORDERED: CEPHALEXIN 250 MG CAP ONE (23:30)
[2023-09-23] MEDS ORDERED: metroNIDAZOLE 500 MG TABLET ONE (23:30)
[2023-09-23] MEDS ORDERED: FAMOTIDINE 20 MG/2 ML VIAL IV ONE (23:31)
[2023-09-24 00:16] LABS: C-Reactive Protein 4.74 mg/L (<3.00); Troponin High Sensitivity 13.6 pg/mL (<58.9)
[2023-09-24 00:48] VITALS: BP 185/74; TEMP 97.5; O2SAT 97
--- NOTE | 2023-09-24 14:00 | EKG ---
Test Date: 2023-09-23 Test Time: 21:47:14 French Binding Folder: BLANCA MEASUREMENT RESULTS: Intervals: Rate: 80 WY: 156 QRSD: 82 QT: 338 QTc: 389 [place]: P: -1 WY: 156 QRS: 67 T: -16 INTERPRETIVE STATEMENTS: Normal sinus rhythm T wave abnormality, consider inferior ischemia Abnormal ECG Compared to ECG 05/07/2022 11:31:56 T-wave abnormality now present ST (T wave) deviation no longer present Possible ischemia still present Electronically Signed On 09-24-23 13:58:15 CDT by Richard Flores
== END 2023-09-23 23:56 | disposition home or self-care (01) ==
LOC: ER 20:21
DX: K52.9 Noninfective gastroenteritis and colitis, unspecified (principal); K52.89 Other specified noninfective gastroenteritis and colitis; Z88.1 Allergy status to other antibiotic agents; Z88.3 Allergy status to other anti-infective agents; Z88.8 Allergy status to other drugs, medicaments and biological substances
CPT/HCPCS: 85025; 81001; 36415; 84484; 83690; 80053; 86140; 74177; Q9967; J2765; J0500; J2405; J7030; 93005; 96361; 96372; 96374; 96375; 99284

== ENCOUNTER 2023-12-20 06:30 | Day surgery (SDC) | payer OTHER ==
[2023-12-17 14:16] LABS: Absolute Basophils 0.1 K/uL (0-0.5); Absolute Eosinophils 0.1 K/uL (0-0.5); Absolute Lymphocytes (CBC) 1.6 K/uL (0.7-4.9); Absolute Monocytes 0.6 K/uL (0.1-1.3); Basophils % 0.8 % (0-1.3); Eosinophils % 0.7 % (0-4.4); Hematocrit 38.8 % (36.0-45.0); Hemoglobin 13.2 g/dL (12.0-15.0); Lymphocytes % 22.1 % (15.3-44.8); MCH 31.5 pg (27.0-35.0); MCHC 34.1 g/dL (32.0-36.0); MCV 92.2 fL (80-100); MPV 7.6 fL (7.6-11.3); Monocytes % 8.3 % (3.3-12.3); Neutrophils % 68.1 % (41.7-73.7); Nucleated Red Blood Cells % 0.3 % (0-0); Platelets 189 thou/uL (152-406)
[2023-12-17 14:25] LABS: Anion Gap 12.2 mEq/L (5.0-15.0); Potassium 4.2 mEq/L (3.5-5.1)
[2023-12-17 14:40] LABS: PT Prothrombin Time 10.4 SECONDS (9.4-12.5); PTT, Activated Partial Thromb 31.7 SECONDS (24.3-36.9); Protime INR 0.93
--- NOTE | 2023-12-17 20:53 | RAD REPORT ---
EXAM DESCRIPTION: RAD - Chest Pa And Lat (2 Views) - 12/17/2023 2:36 pm CLINICAL HISTORY: pre op. Hypertension COMPARISON: Chest Single View dated 05/07/2022 TECHNIQUE: PA and lateral views of the chest were obtained. FINDINGS: The lungs are clear. Mild diffuse hyperlucency. Heart size is normal and central vasculatu re is within normal limits. No pleural effusion or pneumothorax seen. No acute bony finding noted. IMPRESSION: No acute cardiopulmonary process.
[2023-12-20] MEDS ORDERED: NA CHLORIDE 0.9% 500 ML ONE (06:51)
[2023-12-20 07:04] VITALS: TEMP 98.2
[2023-12-20] MEDS ORDERED: MIDAZOLAM HCL 2 MG/2 ML INJ ONE (07:12)
[2023-12-20] MEDS ORDERED: LIDOCAINE 1% 20 ML MDV ONE (07:12)
[2023-12-20] MEDS ORDERED: HEPA 1000U/500MLS 2,000 UNIT/1,000 ML BAG IV ONE (07:12)
[2023-12-20] MEDS ORDERED: FENTANYL CITR 100 MCG/2 ML ONE (07:13)
[2023-12-20] MEDS ORDERED: METHYLPREDNISOLONE 125 MG INJ ONE (07:21)
[2023-12-20] MEDS ORDERED: DIPHENHYDRAMINE 50 MG/ML VIAL ONE (07:22)
--- NOTE | 2023-12-20 08:16 | OP ---
Date of Procedure: 12/20/2023 Surgeon: ROMAN ADAMS Procedure Performed: IVC filter placement. Indications: DVT with massive GI bleed, unable to take anticoagulants. Access: Right femoral vein, 7-[place]ian, closed with manual pressure. Complications: None. Bleeding: Less than 50 mL. Anesthesia: Total sedation time was 30 minutes. Used fentanyl and Versed. Description Of Procedure: After risks, benefits, and alternatives were explained, the patient agreed to procedure and signed informed consent. The patient was brought into the cardiac catheterization laboratory, prepped and draped in usual sterile fashion. Then, I accessed right common femoral vein using a micropuncture kit, ultrasound guidance and placed 7-[place] sheath and took the J-wir e into the SVC and advanced the IVC filter delivery system into the IVC and performed venogram and id entified the renal veins and subsequently, wire was removed and then the IVC filter delivery system w as advanced to place the filter below the renal veins and device was deployed successfully and then e quipments were removed. Sheath was removed. Manual pressure was used for closure with good hemostas is. Conclusion: Successful IVC filter placement. /BETO Voice ID: [id number] Report ID: [id number]
[2023-12-20 09:11] VITALS: BP 130/67; O2SAT 98
== END 2023-12-20 09:13 | disposition home or self-care (01) ==
LOC: CCL 06:30
PROVIDERS: ATTEND Internal Medicine
DX: I82.432 Acute embolism and thrombosis of left popliteal vein (principal); I10 Essential (primary) hypertension; D64.9 Anemia, unspecified; E78.2 Mixed hyperlipidemia; Z79.899 Other long term (current) drug therapy; Z88.0 Allergy status to penicillin; Z88.8 Allergy status to other drugs, medicaments and biological substances; Z91.09 Other allergy status, other than to drugs and biological substances
CPT/HCPCS: 85025; 80048; 36415; 85610; 82947; 85730; 71046; 76937; C1893; Q9966; J2001; J1200; J2250; J3010; J2919; J7040; 99152; 99153

== ENCOUNTER 2024-06-22 12:20 | Day surgery (SDC) | payer OTHER ==
[2024-06-11 15:59] LABS: Absolute Basophils 0.1 K/uL (0-0.5); Absolute Eosinophils 0.1 K/uL (0-0.5); Absolute Lymphocytes (CBC) 1.9 K/uL (0.7-4.9); Absolute Monocytes 0.6 K/uL (0.1-1.3); Absolute Neutrophil 5.2 K/uL (1.8-8.0); Basophils % 0.8 % (0-1.3); Eosinophils % 0.9 % (0-4.4); Hematocrit 37.4 % (36.0-45.0); Hemoglobin 13.2 g/dL (12.0-15.0); Lymphocytes % 24.4 % (15.3-44.8); MCH 32.3 pg (27.0-35.0); MCHC 35.4 g/dL (32.0-36.0); MCV 91.4 fL (80-100); MPV 7.7 fL (7.6-11.3); Monocytes % 7.4 % (3.3-12.3); Neutrophils % 66.5 % (41.7-73.7); Nucleated Red Blood Cells % 0.1 % (0-0); Platelets 189 thou/uL (152-406); RBC Red Blood Cell Count 4.09 M/uL (3.86-4.86); Red Cell Distribution Width 13.1 % (12.1-15.2)
[2024-06-11 16:03] LABS: Anion Gap 9.1 mEq/L (5.0-15.0); Potassium 4.1 mEq/L (3.5-5.1)
[2024-06-11 16:04] LABS: PT Prothrombin Time 10.4 SECONDS (9.4-12.5); Protime INR 0.99
--- NOTE | 2024-06-11 18:23 | RAD REPORT ---
EXAMINATION: TWO VIEW CHEST XR CLINICAL INDICATION: Female, 78 years old. [place] [facility] Pre-op pending IVC filter removal TECHNIQUE: 2 view radiographs of the chest were performed. COMPARISON: 12/17/2023 FINDINGS: The lungs are hyperexpanded with some chronic interstitial thickening, suggesting COPD. Otherwise gomez gs are clear. No pneumothorax or sizable effusion. The heart is normal in size. Mediastinal contours are unremarkable. IMPRESSION: No acute or significant abnormalities. Stable sequelae of COPD.
--- NOTE | 2024-06-12 15:07 | EKG ---
Test Date: 2024-06-11 Test Time: 15:59:06 Factory Supervisor: NALLELY MEASUREMENT RESULTS: Intervals: Rate: 64 VT: 156 QRSD: 76 QT: 406 QTc: 418 [place]: P: 58 VT: 156 QRS: 64 T: 47 INTERPRETIVE STATEMENTS: Normal sinus rhythm Normal ECG Compared to ECG 09/23/2023 21:47:14 T-wave abnormality no longer present Possible ischemia no longer present Electronically Signed On 06-12-24 15:05:52 CUTTER GRIND [employer] TECHNICIAN by Richard Flores
[2024-06-22] MEDS ORDERED: HEPA 1000U/500MLS 2,000 UNIT/1,000 ML BAG IV ONE (13:18)
[2024-06-22] MEDS ORDERED: LIDOCAINE 1% 20 ML MDV ONE (13:18)
[2024-06-22] MEDS ORDERED: FENTANYL CITR 100 MCG/2 ML ONE (13:19)
[2024-06-22] MEDS ORDERED: MIDAZOLAM HCL 2 MG/2 ML INJ ONE (13:19)
[2024-06-22] MEDS ORDERED: ATROPINE SULF 1 MG/10 ML SYR IV ONE (13:19)
[2024-06-22] MEDS ORDERED: METHYLPREDNISOLONE 125 MG INJ ONE (13:28)
[2024-06-22] MEDS ORDERED: DIPHENHYDRAMINE 50 MG/ML VIAL ONE (13:28)
[2024-06-22] MEDS: NA CHLORIDE 0.9% 500 ML ONE (14:40)
[2024-06-22 15:42] VITALS: TEMP 98.4
[2024-06-22] MEDS: HYDRALAZINE HCL 20 MG/ML VIAL ONE (16:43)
[2024-06-22 17:30] VITALS: BP 126/49; O2SAT 97
--- NOTE | 2024-06-23 14:19 | OP ---
Date of Procedure: 06/22/2024 Surgeon: ROMAN ADAMS Procedure Performed: IVC filter removal. Total Sedation Time: 45 minutes, used fentanyl and Versed. Bleeding: Less than 20 mL. Access: Right IJ 11-[place], closed with manual pressure. Complications: None. Description Of Procedure: After risks, benefits, and alternatives were explained, the patient agreed to procedure and signed informed consent. The patient was brought into cardiac catheter[facility], prepped and draped in usual sterile fashion. Then, I accessed right IJ using micropuncture k it, ultrasound guidance, placed a 7-[place] sheath, and then dilated to 11-[place] and then to ok the long 11-[place] catheter and placed it all the way and the IVC close to the filter and then too k a triple loop snare through the catheter and the IVC filter was snared successfully and removed wit hout complication. I then performed an angiogram of the IVC, showed no extravasation or perforation. Then, I removed the sheath and the equipments, and manual pressure was used for closure with good h emostasis. Conclusion: Successful IVC filter removal. /BETO Voice ID: [id number] Report ID: [id number]
== END 2024-06-22 17:36 | disposition home or self-care (01) ==
LOC: CCL 12:20
PROVIDERS: ATTEND Internal Medicine
DX: Z46.89 Encounter for fitting and adjustment of other specified devices (principal); I82.432 Acute embolism and thrombosis of left popliteal vein; I10 Essential (primary) hypertension; E78.2 Mixed hyperlipidemia; Z88.0 Allergy status to penicillin; Z88.1 Allergy status to other antibiotic agents; Z88.8 Allergy status to other drugs, medicaments and biological substances
CPT/HCPCS: 93005; 85025; 80048; 36415; 85610; 85730; 71046; 37193; 76937; C1893; Q9966; J0360; J2003; J2250; J3010; J2919; J7040; 99152; 99153; J0461; J1200